=== PATIENT | female | born 1995 | race African-American/Black ===

== ENCOUNTER 2017-06-07 18:36 | Emergency (ER) | payer OTHER ==
[2017-06-07 18:49] VITALS: TEMP 99.4
[2017-06-07] MEDS ORDERED: SODIUM CHLORIDE 0.9% 1,000 ML IV ONE (19:07)
--- NOTE | 2017-06-07 19:15 | ED ---
Female Urogenital HPI - General Chief complaint: Vaginal Bleeding Stated complaint: Vaginal Bleeding, Poss Time Seen by Provider: 06/07/17 18:53 Source: patient Mode of arrival: ambulatory Limitations: no limitations - History of Present Illness Initial comments: Patient presents with bilateral lower pelvic cramping that is mild, similar to a period. She states she took a home test was positive. Last menstrual period was April 23. She states she's been twice before, had similar symptoms during her first , states she was told that it is normal, however it happened later in her around 13 weeks. Along with some mild cramping pain patient states she's had a small amount of intermittent spotting. States there is some pink mucous on the tissue yesterday. She has not had to use a tampon or pad at all. States spotting does seem to occur after intercourse. Patient denies nausea, vomiting, lightheadedness, syncope, changes in bowel movements, urinary symptoms. MD Complaint: pelvic pain Onset/Timin -: days(s) Quality: cramping Consistency: intermittent Last Menstrual Period: 04/23/17 - Related Data Sexually active: Yes Previous Rx's Medication Instructions Recorded Cephalexin [Keflex] 500 mg PO BID #14 capsule 06/07/17 Pnv No.95/Ferrous Fum/Folic AC 1 each PO DAILY #30 tablet 06/07/17 [ Multivitamin Tablet] Allergies Allergy/AdvReac Type Severity Reaction Status Date / Time No Known Allergies Allergy Verified 06/07/17 19:29 Review of Systems ROS Statement: Those systems with pertinent positive or pertinent negative responses have been documented in the HPI. ROS Other: All systems not noted in ROS Statement are negative. Constitutional: Denies: fever, chills, weakness Eyes: Denies: vision change ENT: Denies: ear pain, throat pain, congestion Respiratory: Denies: cough, dyspnea, wheezes Cardiovascular: Denies: chest pain, palpitations Endocrine: Denies: fatigue Gastrointestinal: Reports: abdominal pain. Denies: nausea, vomiting, diarrhea, constipation, melena, hematochezia Genitourinary: Reports: other (Spotting). Denies: urgency, dysuria, frequency, hematuria, discharge Skin: Denies: rash Neurological: Denies: headache Psychiatric: Denies: anxiety, depression Hematological/Lymphatic: Denies: easy bleeding, easy bruising Past Medical History Past Medical History: No Reported History Additional Past Medical History / Comment(s): asthma as child History of Any Multi-Drug Resistant Organisms: None Reported Past Surgical History: Section Additional Past Surgical History / Comment(s): 2011 c/s, 2003 lasik, 2000 adenoids Past Anesthesia/Blood Transfusion Reactions: No Reported Reaction Past Psychological History: Anxiety, Depression Smoking Status: Never smoker Past Alcohol Use History: None Reported Past Drug Use History: None Reported General Exam - General Exam Comments Initial Comments: Patient lying on bed. No acute distress. Does not appear in pain. Conversing normally. Calm, pleasant. Well-groomed well dressed. Well-appearing. Limitations: no limitations General appearance: alert, in no apparent distress Head exam: Present: atraumatic, normocephalic Eye exam: Present: normal appearance ENT exam: Present: mucous membranes moist Neck exam: Present: normal inspection Respiratory exam: Present: normal lung sounds bilaterally. Absent: respiratory distress, wheezes, rales, rhonchi, stridor, chest wall tenderness, decreased breath sounds Cardiovascular Exam: Present: regular rate, normal rhythm GI/Abdominal exam: Present: soft, normal bowel sounds. Absent: distended, tenderness, guarding, rebound, rigid External exam: Present: normal external exam. Absent: erythema, swelling, lesions Speculum exam: Present: normal speculum exam, other (Cervix closed.). Absent: erythema, vaginal discharge, cervical discharge, tissue Neurological exam: Present: alert, oriented X3 Psychiatric exam: Present: normal affect, normal mood Skin exam: Present: warm, dry, intact Course Vital Signs 06/07/17 06/07/17 18:46 20:51 Temperature 99.4 F Pulse Rate 84 66 Respiratory 16 16 Rate Blood Pressure 127/63 111/56 O2 Sat by Pulse 98 100 Oximetry Medical Decision Making - Medical Decision Making She has no significant pain at time of initial evaluation. Did not require pain meds. Ultrasound shows single intrauterine approximately 9 weeks old. Urine likely contaminated, however given we'll give prescription for antibiotics, Keflex. Urine culture sent. Patient to follow up with her OB Dr. Vargas for management. vitamin prescription is given. Patient updated with all results and plan. She understands and agrees. All questions answered. Patient's symptoms likely secondary to normal mild cramping and spotting from normal . - Lab Data Result diagrams: 06/07/17 19:15 06/07/17 19:15 Lab Results 06/07/17 06/07/17 06/07/17 Range/Units 19:15 19:15 19:15 WBC 5.4 (3.8-10.6) k/uL RBC 3.87 (3.80-5.40) m/uL Hgb 11.8 (11.4-16.0) gm/dL Hct 35.1 (34.0-46.0) % MCV 90.7 (80.0-100.0) fL MCH 30.3 (25.0-35.0) pg MCHC 33.5 (31.0-37.0) g/dL RDW 13.9 (11.5-15.5) % Plt Count 246 (150-450) k/uL Neutrophils % 52 % Lymphocytes % 37 % Monocytes % 7 % Eosinophils % 1 % Basophils % 1 % Neutrophils # 2.8 (1.3-7.7) k/uL Lymphocytes # 2.0 (1.0-4.8) k/uL Monocytes # 0.4 (0-1.0) k/uL Eosinophils # 0.1 (0-0.7) k/uL Basophils # 0.0 (0-0.2) k/uL PT (9.0-12.0) sec INR (<1.2) APTT (22.0-30.0) sec Sodium 138 (137-145) mmol/L Potassium 3.8 (3.5-5.1) mmol/L Chloride 108 H (98-107) mmol/L Carbon Dioxide 19 L (22-30) mmol/L Anion Gap 11 mmol/L BUN 5 L (7-17) mg/dL Creatinine 0.60 (0.52-1.04) mg/dL Est GFR (MDRD) Af Amer >60 (>60 ml/min/1.73 sqM) Est GFR (MDRD) Non-Af >60 (>60 ml/min/1.73 sqM) Glucose 127 H (74-99) mg/dL Calcium 9.1 (8.4-10.2) mg/dL HCG, Quant 86606.6 mIU/mL Urine Color Urine Appearance (Clear) Urine pH (5.0-8.0) Ur Specific [place] (1.001-1.035) Urine Protein (Negative) Urine Glucose (UA) (Negative) Urine Ketones (Negative) Urine Blood (Negative) Urine Nitrite (Negative) Urine Bilirubin (Negative) Urine Urobilinogen (<2.0) mg/dL Ur Leukocyte Esterase (Negative) Urine RBC (0-5) /hpf Urine WBC (0-5) /hpf Ur Squamous Epith Cells (0-4) /hpf Amorphous Sediment (None) /hpf Urine Mucus (None) /hpf Blood Type B Positive Blood Type Recheck No 06/07/17 06/07/17 Range/Units 19:15 19:15 WBC (3.8-10.6) k/uL RBC (3.80-5.40) m/uL Hgb (11.4-16.0) gm/dL Hct (34.0-46.0) % MCV (80.0-100.0) fL MCH (25.0-35.0) pg MCHC (31.0-37.0) g/dL RDW (11.5-15.5) % Plt Count (150-450) k/uL Neutrophils % % Lymphocytes % % Monocytes % % Eosinophils % % Basophils % % Neutrophils # (1.3-7.7) k/uL Lymphocytes # (1.0-4.8) k/uL Monocytes # (0-1.0) k/uL Eosinophils # (0-0.7) k/uL Basophils # (0-0.2) k/uL PT 10.8 (9.0-12.0) sec INR 1.1 (<1.2) APTT 23.9 (22.0-30.0) sec Sodium (137-145) mmol/L Potassium (3.5-5.1) mmol/L Chloride (98-107) mmol/L Carbon Dioxide (22-30) mmol/L Anion Gap mmol/L BUN (7-17) mg/dL Creatinine (0.52-1.04) mg/dL Est GFR (MDRD) Af Amer (>60 ml/min/1.73 sqM) Est GFR (MDRD) Non-Af (>60 ml/min/1.73 sqM) Glucose (74-99) mg/dL Calcium (8.4-10.2) mg/dL HCG, Quant mIU/mL Urine Color Yellow Urine Appearance Cloudy H (Clear) Urine pH 6.0 (5.0-8.0) Ur Specific [place] 1.023 (1.001-1.035) Urine Protein 1+ H (Negative) Urine Glucose (UA) Negative (Negative) Urine Ketones Negative (Negative) Urine Blood Large H (Negative) Urine Nitrite Negative (Negative) Urine Bilirubin Negative (Negative) Urine Urobilinogen 2.0 (<2.0) mg/dL Ur Leukocyte Esterase Trace H (Negative) Urine RBC 6 H (0-5) /hpf Urine WBC 11 H (0-5) /hpf Ur Squamous Epith Cells 35 H (0-4) /hpf Amorphous Sediment Occasional H (None) /hpf Urine Mucus Few H (None) /hpf Blood Type Blood Type Recheck Disposition Clinical Impression: , UTI (urinary tract infection) during Disposition: HOME SELF-CARE Condition: Good Instructions: Abdominal Pain in (ED), Urinary Tract Infection in (ED) Prescriptions: Cephalexin [Keflex] 500 mg PO BID #14 capsule Pnv No.95/Ferrous Fum/Folic AC [ Multivitamin Tablet] 1 each PO DAILY # 30 tablet Referrals: None,Stated [Primary Care Provider] - 1-2 days Berenice Vargas DO [Doctor of Osteopathic Medicine] - 1-2 days
[2017-06-07 19:35] LABS: Basophils % (A) 1 %; CHCM 34.4; Eosinophils # (A) 0.1 k/uL (0-0.7); Eosinophils % (A) 1 %; HCT 35.1 % (34.0-46.0); HDW 2.42; HGB 11.8 gm/dL (11.4-16.0); Luc # (Auto) 0.16; Luc % (Auto) 3; Lymphocytes % (A) 37 %; MCH 30.3 pg (25.0-35.0); MCHC 33.5 g/dL (31.0-37.0); MCV 90.7 fL (80.0-100.0); Mean Platelet Volume 8.5; Monocytes # (A) 0.4 k/uL (0-1.0); Monocytes % (A) 7 %; Neutrophils # (A) 2.8 k/uL (1.3-7.7); Neutrophils % (A) 52 %; RBC 3.87 m/uL (3.80-5.40); RDW 13.9 % (11.5-15.5); WBC 5.4 k/uL (3.8-10.6); WBC (Perox) 5.63
[2017-06-07 19:46] LABS: Partial Thromboplastin Time 23.9 sec (22.0-30.0)
[2017-06-07 19:48] LABS: INR 1.1 (<1.2); Prothrombin Time 10.8 sec (9.0-12.0)
[2017-06-07 19:49] LABS: Amorphous Sediment,Urine Occasional /hpf; Appearance,Urine Cloudy (Clear); Bilirubin,Urine Negative (Negative); Glucose,Urine (UA) Negative (Negative); Ketones,Urine Negative (Negative); Leukocyte Esterase,Urine Trace (Negative); Mucus,Urine Few /hpf; Nitrite,Urine Negative (Negative); Particle Count 12909; Protein,Urine 1+ (Negative); RBC,Urine 6 /hpf (0-5); Specific Gravity,Urine 1.023 (1.001-1.035); Squamous Epithelial Cell,Urine 35 /hpf (0-4); UA Billing (MACRO vs. MICRO) MICRO; WBC,Urine 11 /hpf (0-5)
[2017-06-07 19:51] LABS: Anion Gap 11 mmol/L; Blood Urea Nitrogen 5 mg/dL (7-17); Calcium 9.1 mg/dL (8.4-10.2); Carbon Dioxide 19 mmol/L (22-30); Chloride 108 mmol/L (98-107); Glucose 127 mg/dL (74-99); Non-African American GFR(MDRD) >60 (>60 ml/min/1.73 sqM); Potassium 3.8 mmol/L (3.5-5.1); Sodium 138 mmol/L (137-145)
--- NOTE | 2017-06-07 20:27 | US ---
EXAMINATION TYPE: US OB <= 14 wk fetus DATE OF EXAM: 06/07/2017 COMPARISON: Spotting CLINICAL HISTORY: pain. EXAM PERFORMED: Transvaginal (TV) and Transabdominal (TA) EXAM MEASUREMENTS: GESTATIONAL AGE / DATING Physician Established: Not yet established ) Dates by LMP: 05/24/2017 (6 weeks/3 days) EDC: 01/28/2018 Dates by First Scan: No previous this is first scan Dates by Current Scan for: (6 weeks/3 days) EDC: 01/28/2018 MATERNAL ANATOMY Uterus: 9.9 x 5.7 x 6.1 cm Right Ovary: 3.2 x 2.0 x 2.5 cm Left Ovary: 2.4 x 2.0 1.7 cm Post CDS / Adnexa: wnl Presence of free fluid: no Presence of corpus luteal cyst: yes Presence of subchorionic bleed: no GESTATION / SURVEY CRL: 0.72 (9 weeks/4 days) MSD: 1.83 (6 weeks/2 days) Yolk Sac (normal less than 6mm): 0.26 Heart Rate: 174 bpm Rhythm: Normal IUP: Viable IUP Date of LMP: ? Beta HcG (if available): Not available Single live intrauterine gestation is confirmed as gestational sac, yolk sac, pole are identifi ed currently. No free fluid is seen in pelvic cul-de-sac. Both ovaries are present. A 1 cm anechoic lesion within right ovary may reflect corpus luteal cyst. N o suspicious extraovarian lesions are present. IMPRESSION: Single live intrauterine gestation is confirmed, mean crown-rump length is 0.7 cm corresponding to 9 week 4 day old fetus.
[2017-06-07 20:54] VITALS: BP 111/56
[2017-06-07 21:24] VITALS: PULSE 84; RESP 19
== END 2017-06-07 21:25 | disposition home or self-care (01) ==
LOC: EC 18:36
DX: O23.41 Unspecified infection of urinary tract in pregnancy, first trimester (principal); Z3A.09 9 weeks gestation of pregnancy
CPT/HCPCS: 36415; 76801; 80048; 81001; 84702; 85025; 85610; 85730; 86900; 86901; 87086; 96360; 99284

== ENCOUNTER 2017-09-08 20:38 | Emergency (ER) | payer OTHER ==
[2017-09-08 20:46] VITALS: BP 125/57; PULSE 122; RESP 18; TEMP 98
--- NOTE | 2017-09-08 20:59 | ED ---
URI HPI - General Chief Complaint: Upper Respiratory Infection Stated Complaint: Flu Symptoms (20 week preg) Time Seen by Provider: 09/08/17 20:48 Source: patient, RN notes reviewed Mode of arrival: ambulatory Limitations: no limitations - History of Present Illness Initial Comments: This is a 22-year-old female presents emergency Department chief complaint of sinus congestion, sore throat, cough and body aches. 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 Patient states that she's had cold flashes no reported fever. She has tried some cough drops but has not taken her some Tylenol Motrin. She digit some tea earlier that had some caffeine. Patient states she has no chest pain or palpitations. She has no current shortness of breath or chest pain. Patient denies any nausea vomiting diarrhea constipation. Patient is 19 weeks and 5 days. Patient has no compilations of her . - Related Data Previous Rx's Medication Instructions Recorded Pnv No.95/Ferrous Fum/Folic AC 1 each PO DAILY #30 tablet 06/07/17 [ Multivitamin Tablet] Allergies Allergy/AdvReac Type Severity Reaction Status Date / Time No Known Allergies Allergy Verified 09/08/17 21:15 Review of Systems ROS Statement: Those systems with pertinent positive or pertinent negative responses have been documented in the HPI. ROS Other: All systems not noted in ROS Statement are negative. Past Medical History Past Medical History: No Reported History Additional Past Medical History / Comment(s): asthma as child History of Any Multi-Drug Resistant Organisms: None Reported Past Surgical History: Section Additional Past Surgical History / Comment(s): 2012 c/s, 2003 lasik, 2000 adenoids Past Anesthesia/Blood Transfusion Reactions: No Reported Reaction Past Psychological History: Anxiety, Depression Smoking Status: Never smoker Past Alcohol Use History: None Reported Past Drug Use History: None Reported General Exam Limitations: no limitations General appearance: alert, in no apparent distress Head exam: Present: atraumatic, normocephalic, normal inspection Eye exam: Present: normal appearance, PERRL, EOMI. Absent: scleral icterus, conjunctival injection, periorbital swelling ENT exam: Present: mucous membranes moist, TM's normal bilaterally, normal external ear exam. Absent: normal exam, normal oropharynx (Postnasal drainage) Neck exam: Present: normal inspection, full ROM. Absent: tenderness, meningismus, lymphadenopathy Respiratory exam: Present: normal lung sounds bilaterally. Absent: respiratory distress, wheezes, rales, rhonchi, stridor Cardiovascular Exam: Present: normal rhythm, tachycardia (Tachycardia at 122 on triage, in room recheck at 106), normal heart sounds. Absent: systolic murmur, diastolic murmur, rubs, gallop, clicks Neurological exam: Present: alert, oriented X3, CN II-XII intact Skin exam: Present: warm, dry, intact, normal color. Absent: rash Course Vital Signs 09/08/17 20:45 Temperature 98 F Pulse Rate 122 H Respiratory 18 Rate Blood Pressure 125/57 O2 Sat by Pulse 97 Oximetry Medical Decision Making - Medical Decision Making 22-year-old female presented emergency department with chief complaint cough congestion collections for 1 week. Patient is influenza A positive. Chest x- ray shows no evidence of pneumonia. Patient is advised to take acetaminophen for aches and pains and fever. She may take [id number] medications approved by her LEGAL OPERATIONS MANAGER. - Lab Data Lab Results 09/08/17 Range/Units 21:07 Influenza Type A RNA Detected H (Not Detectd) Influenza Type B (PCR) Not Detected (Not Detectd) Disposition Clinical Impression: Influenza Disposition: HOME SELF-CARE Condition: Stable Instructions: Influenza (ED) Additional Instructions: Please return to the Emergency Department if symptoms worsen or any other concerns. Referrals: None,Stated [Primary Care Provider] - 1-2 days Time of Disposition: 21:32
--- NOTE | 2017-09-08 21:10 | XR ---
EXAMINATION TYPE: XR chest 2V DATE OF EXAM: 09/08/2017 COMPARISON: NONE HISTORY: Cough TECHNIQUE: Frontal and lateral views of the chest are obtained. FINDINGS: Heart and mediastinum are normal. Lungs are clear of consolidation. There is a focal area of subsegmental atelectasis in the left lower lobe. The other lung julian are clear. Bony thorax appe ars normal. IMPRESSION: Minimal subsegmental atelectasis in the left lower lobe.
== END 2017-09-08 21:38 | disposition home or self-care (01) ==
LOC: EC 20:38
DX: O99.512 Diseases of the respiratory system complicating pregnancy, second trimester (principal); J10.1 Influenza due to other identified influenza virus with other respiratory manifestations; Z3A.20 20 weeks gestation of pregnancy
CPT/HCPCS: 71046; 87502; 99283

== ENCOUNTER → 2017-10-14 | Outpatient (CLI) | payer OTHER ==
[2017-10-14 10:00] LABS: HCT 33.4 % (34.0-46.0); HGB 10.7 gm/dL (11.4-16.0); MCH 30.3 pg (25.0-35.0); MCHC 32.1 g/dL (31.0-37.0); MCV 94.4 fL (80.0-100.0); Mean Platelet Volume 8.6; Platelet Count 205 k/uL (150-450); RBC 3.54 m/uL (3.80-5.40); RDW 13.4 % (11.5-15.5); WBC 7.8 k/uL (3.8-10.6)
== END | disposition home or self-care (01) ==
LOC: LABWHC1 08:29
PROVIDERS: ATTEND Obstetrics & Gynecology
DX: Z34.82 Encounter for supervision of other normal pregnancy, second trimester (principal)
CPT/HCPCS: 36415; 82950; 85027

== ENCOUNTER 2017-10-19 16:16 | Emergency (ER) | payer OTHER ==
--- NOTE | 2017-10-19 16:39 | ED ---
General Adult HPI - General Chief complaint: Dizziness Stated complaint: Dizziness Time Seen by Provider: 10/19/17 16:36 Source: patient Mode of arrival: ambulatory Limitations: no limitations - History of Present Illness Initial comments: Dk is a 22 yo female currently 26wk who presents to the ED today for evaluation of fatigue, nausea and near syncope. 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 Patient reports that after eating she started and she felt very lightheaded, her hands became clammy and she felt like she could pass out. She denies any chest pain or palpitations at that time. She sat back down and was advised by the nursing staff that she needs to have her blood glucose checked and be evaluated in the emergency department. Patient does report she's been feeling fatigued for approximately 3 days. She states she attributed this to lack of sleep she does have a 3-year-old and a 5- year-old home. She states that she figured she just needed to make sure to eat more and sleep more and she would feel better. However, symptoms persisted after eating today so she came to the ER for evaluation. Patient follows with Dr. Vargas for OB, she has had an uncomplicated thus far. - Related Data Home Medications Medication Instructions Recorded Confirmed Pnv No.95/Ferrous Fum/Folic AC 1 tab PO HS 10/19/17 10/19/17 [ Multivitamin Tablet] Allergies Allergy/AdvReac Type Severity Reaction Status Date / Time No Known Allergies Allergy Verified 10/19/17 16:32 Review of Systems ROS Statement: Those systems with pertinent positive or pertinent negative responses have been documented in the HPI. ROS Other: All systems not noted in ROS Statement are negative. Constitutional: Denies: fever, chills ENT: Denies: throat pain Respiratory: Denies: cough, dyspnea, wheezes Cardiovascular: Reports: palpitations. Denies: chest pain, syncope Endocrine: Reports: fatigue Gastrointestinal: Reports: nausea Genitourinary: Denies: urgency, dysuria Musculoskeletal: Reports: back pain (chronic) Skin: Denies: rash, lesions, change in color Neurological: Denies: paresthesias, confusion, abnormal gait, vertigo Psychiatric: Denies: anxiety Hematological/Lymphatic: Denies: easy bleeding, easy bruising Past Medical History Past Medical History: No Reported History Additional Past Medical History / Comment(s): asthma as child History of Any Multi-Drug Resistant Organisms: None Reported Past Surgical History: Adenoidectomy, Section Additional Past Surgical History / Comment(s): 2012 c/s, 2003 lasik, Past Anesthesia/Blood Transfusion Reactions: No Reported Reaction Past Psychological History: Anxiety, Depression Smoking Status: Never smoker Past Alcohol Use History: None Reported Past Drug Use History: None Reported General Exam Limitations: no limitations General appearance: alert, in no apparent distress Head exam: Present: atraumatic, normocephalic Eye exam: Present: normal appearance, PERRL ENT exam: Present: normal exam Neck exam: Present: normal inspection Respiratory exam: Present: normal lung sounds bilaterally. Absent: respiratory distress, wheezes Cardiovascular Exam: Present: regular rate, normal rhythm GI/Abdominal exam: Present: soft, normal bowel sounds, other (uterus palpable above umbilicus ) Rectal exam: Present: deferred Extremities exam: Present: normal inspection, full ROM, normal capillary refill. Absent: tenderness, pedal edema, joint swelling Back exam: Present: normal inspection Neurological exam: Present: alert, oriented X3. Absent: altered Psychiatric exam: Present: normal affect, normal mood Skin exam: Present: warm, dry, intact, normal color Course Vital Signs 10/19/17 10/19/17 10/19/17 16:25 18:45 19:28 Temperature 97.6 F 97 F L Pulse Rate 100 97 Respiratory 20 18 Rate Blood Pressure 145/79 118/55 Blood Pressure 139/66 [Right Arm Sitting] Blood Pressure 146/71 [Right Arm Standing] Blood Pressure 128/66 [Right Arm Supine] O2 Sat by Pulse 98 98 Oximetry - Reevaluation(s) Reevaluation #1: Patient was reevaluated, reports feeling better after IV fluids 10/19/17 18:31 Medical Decision Making - Medical Decision Making Patient seen and evaluated Vital signs reviewed - heart rate is 100, normal blood pressure OB nurse at bedside obtained Dopplers. heart rate in the 150s to 160s. Heart rate was monitored for 1 minute. Mother reports that the baby has had good motion and she has no concerns. Labs, EKG, IVF ordered Will assess orthostatic vital signs after IVF Lab results were reviewed, patient is anemic which is consistent with dilutional anemia of Patient was reevaluated, reports feeling better after IV fluids, results were discussed with the patient Discussed with the patient the possibility of more serious diagnosis including pulmonary embolism, I offered the patient bilateral venous Dopplers or CT pulmonary embolism study. At this time the patient states that she believes her fatigue and shortness of breath is normal for . She does not feel that it is out of proportion compared to her previous pregnancies. She does feel that her symptoms have been relieved with IV fluids. At this time the patient has declined further workup for pulmonary embolism. The patient does have follow-up established with her OB on Tuesday. Patient was advised to return to the emergency department should she develop any chest pain, shortness breath, lightheadedness or any new or concerning symptoms. Patient expressed understanding of this plan. Offered to write the patient for day off work tomorrow. 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 I advised the patient that I feel that she will benefit from this rest. Patient in agreement with this. Orthostatic vital signs were negative. Patient reports feeling much better after 1 L IV fluid. At this time the patient is comfortable with plan for discharge home. Patient does plan to sleep and catch up on her rest tomorrow and return to work on Tuesday. Again patient understands the need to return to the emergency department immediately should she develop any worsening or concerning symptoms. All questions pertaining to care were answered to the best of my ability the patient was discharged home with a plan to follow up with her project buyer on Tuesday. - Lab Data Result diagrams: 10/19/17 17:15 10/19/17 17:15 Lab Results 10/19/17 10/19/17 10/19/17 Range/Units 17:15 17:15 17:15 WBC 6.8 (3.8-10.6) k/uL RBC 3.45 L (3.80-5.40) m/uL Hgb 10.3 L (11.4-16.0) gm/dL Hct 32.1 L (34.0-46.0) % MCV 93.0 (80.0-100.0) fL MCH 29.9 (25.0-35.0) pg MCHC 32.1 (31.0-37.0) g/dL RDW 13.3 (11.5-15.5) % Plt Count 189 (150-450) k/uL Neutrophils % 69 % Lymphocytes % 20 % Monocytes % 7 % Eosinophils % 2 % Basophils % 0 % Neutrophils # 4.7 (1.3-7.7) k/uL Lymphocytes # 1.4 (1.0-4.8) k/uL Monocytes # 0.5 (0-1.0) k/uL Eosinophils # 0.1 (0-0.7) k/uL Basophils # 0.0 (0-0.2) k/uL Sodium 138 (137-145) mmol/L Potassium 3.5 (3.5-5.1) mmol/L Chloride 106 (98-107) mmol/L Carbon Dioxide 22 (22-30) mmol/L Anion Gap 10 mmol/L BUN 4 L (7-17) mg/dL Creatinine 0.50 L (0.52-1.04) mg/dL Est GFR (MDRD) Af Amer >60 (>60 ml/min/1.73 sqM) Est GFR (MDRD) Non-Af >60 (>60 ml/min/1.73 sqM) Glucose 113 H (74-99) mg/dL Calcium 9.0 (8.4-10.2) mg/dL Total Bilirubin 0.2 (0.2-1.3) mg/dL AST 18 (14-36) U/L ALT 13 (9-52) U/L Alkaline Phosphatase 70 (38-126) U/L Troponin I <0.012 (0.000-0.034) ng/mL Total Protein 6.5 (6.3-8.2) g/dL Albumin 3.2 L (3.5-5.0) g/dL Urine Color Urine Appearance (Clear) Urine pH (5.0-8.0) Ur Specific [place] (1.001-1.035) Urine Protein (Negative) Urine Glucose (UA) (Negative) Urine Ketones (Negative) Urine Blood (Negative) Urine Nitrite (Negative) Urine Bilirubin (Negative) Urine Urobilinogen (<2.0) mg/dL Ur Leukocyte Esterase (Negative) Urine RBC (0-5) /hpf Urine WBC (0-5) /hpf Ur Squamous Epith Cells (0-4) /hpf Amorphous Sediment (None) /hpf Urine Mucus (None) /hpf 10/19/17 Range/Units 17:15 WBC (3.8-10.6) k/uL RBC (3.80-5.40) m/uL Hgb (11.4-16.0) gm/dL Hct (34.0-46.0) % MCV (80.0-100.0) fL MCH (25.0-35.0) pg MCHC (31.0-37.0) g/dL RDW (11.5-15.5) % Plt Count (150-450) k/uL Neutrophils % % Lymphocytes % % Monocytes % % Eosinophils % % Basophils % % Neutrophils # (1.3-7.7) k/uL Lymphocytes # (1.0-4.8) k/uL Monocytes # (0-1.0) k/uL Eosinophils # (0-0.7) k/uL Basophils # (0-0.2) k/uL Sodium (137-145) mmol/L Potassium (3.5-5.1) mmol/L Chloride (98-107) mmol/L Carbon Dioxide (22-30) mmol/L Anion Gap mmol/L BUN (7-17) mg/dL Creatinine (0.52-1.04) mg/dL Est GFR (MDRD) Af Amer (>60 ml/min/1.73 sqM) Est GFR (MDRD) Non-Af (>60 ml/min/1.73 sqM) Glucose (74-99) mg/dL Calcium (8.4-10.2) mg/dL Total Bilirubin (0.2-1.3) mg/dL AST (14-36) U/L ALT (9-52) U/L Alkaline Phosphatase (38-126) U/L Troponin I (0.000-0.034) ng/mL Total Protein (6.3-8.2) g/dL Albumin (3.5-5.0) g/dL Urine Color Yellow Urine Appearance Cloudy H (Clear) Urine pH 6.5 (5.0-8.0) Ur Specific [place] 1.015 (1.001-1.035) Urine Protein Trace H (Negative) Urine Glucose (UA) 1+ H (Negative) Urine Ketones Negative (Negative) Urine Blood Negative (Negative) Urine Nitrite Negative (Negative) Urine Bilirubin Negative (Negative) Urine Urobilinogen 2.0 (<2.0) mg/dL Ur Leukocyte Esterase Trace H (Negative) Urine RBC 1 (0-5) /hpf Urine WBC 19 H (0-5) /hpf Ur Squamous Epith Cells 29 H (0-4) /hpf Amorphous Sediment Occasional H (None) /hpf Urine Mucus Few H (None) /hpf Disposition Clinical Impression: Dehydration Disposition: HOME SELF-CARE Condition: Good Instructions: Dehydration (ED), Dizziness (ED) Referrals: None,Stated [Primary Care Provider] - 1-2 days Berenice Vargas DO [Doctor of Osteopathic Medicine] - 1-2 days Time of Disposition: 19:06
[2017-10-19] MEDS ORDERED: SODIUM CHLORIDE 0.9% 1,000 ML IV STA (16:48)
[2017-10-19 17:33] LABS: Amorphous Sediment,Urine Occasional /hpf; Appearance,Urine Cloudy (Clear); Basophils % (A) 0 %; Bilirubin,Urine Negative (Negative); Blood,Urine Negative (Negative); Color,Urine Yellow; Eosinophils # (A) 0.1 k/uL (0-0.7); Eosinophils % (A) 2 %; Glucose,Urine (UA) 1+ (Negative); HCT 32.1 % (34.0-46.0); HGB 10.3 gm/dL (11.4-16.0); Ketones,Urine Negative (Negative); Leukocyte Esterase,Urine Trace (Negative); Lymphocytes # (A) 1.4 k/uL (1.0-4.8); Lymphocytes % (A) 20 %; MCH 29.9 pg (25.0-35.0); MCHC 32.1 g/dL (31.0-37.0); Mean Platelet Volume 9.1; Monocytes # (A) 0.5 k/uL (0-1.0); Monocytes % (A) 7 %; Mucus,Urine Few /hpf; Neutrophils # (A) 4.7 k/uL (1.3-7.7); Neutrophils % (A) 69 %; Nitrite,Urine Negative (Negative); PH, Urine 6.5 (5.0-8.0); Platelet Count 189 k/uL (150-450); Protein,Urine Trace (Negative); RBC 3.45 m/uL (3.80-5.40); RBC,Urine 1 /hpf (0-5); RDW 13.3 % (11.5-15.5); Specific Gravity,Urine 1.015 (1.001-1.035); Squamous Epithelial Cell,Urine 29 /hpf (0-4); WBC 6.8 k/uL (3.8-10.6); WBC,Urine 19 /hpf (0-5)
[2017-10-19 17:37] LABS: ALT 13 U/L (9-52); AST 18 U/L (14-36); Albumin 3.2 g/dL (3.5-5.0); Alkaline Phosphatase 70 U/L (38-126); Anion Gap 10 mmol/L; Blood Urea Nitrogen 4 mg/dL (7-17); Carbon Dioxide 22 mmol/L (22-30); Chloride 106 mmol/L (98-107); Glucose 113 mg/dL (74-99); Potassium 3.5 mmol/L (3.5-5.1); Sodium 138 mmol/L (137-145); Total Bilirubin 0.2 mg/dL (0.2-1.3); Total Protein 6.5 g/dL (6.3-8.2)
[2017-10-19 19:29] VITALS: BP 118/55; PULSE 97; RESP 18; TEMP 97
== END 2017-10-19 19:29 | disposition home or self-care (01) ==
LOC: EC 16:16
DX: O99.282 Endocrine, nutritional and metabolic diseases complicating pregnancy, second trimester (principal); E86.0 Dehydration; O99.89 Other specified diseases and conditions complicating pregnancy, childbirth and the puerperium; R55 Syncope and collapse; R11.0 Nausea; R53.83 Other fatigue; R42 Dizziness and giddiness; Z3A.26 26 weeks gestation of pregnancy
CPT/HCPCS: 36415; 80053; 81001; 84484; 85025; 93005; 96360; 96361; 99284

== ENCOUNTER 2017-10-23 13:08 | Outpatient (CLI) | payer OTHER ==
[2017-10-23 14:25] LABS: Appearance,Urine Turbid (Clear); Bacteria,Urine Rare /hpf; Bilirubin,Urine Negative (Negative); Blood,Urine Negative (Negative); Budding Yeast,Urine Many /hpf; Color,Urine Yellow; Glucose,Urine (UA) Negative (Negative); Ketones,Urine Negative (Negative); Leukocyte Esterase,Urine Negative (Negative); Nitrite,Urine Negative (Negative); Protein,Urine Trace (Negative); Specific Gravity,Urine 1.012 (1.001-1.035); Squamous Epithelial Cell,Urine 2 /hpf (0-4); Urobilinogen,Urine <2.0 mg/dL (<2.0); WBC,Urine 4 /hpf (0-5)
[2017-10-23 15:22] VITALS: BP 134/73; PULSE 111; RESP 20; TEMP 98.3
--- NOTE | 2017-11-20 07:22 | P.MSEPDOC ---
Presenting Problems - Arrival Data Date of Arrival on Unit: 10/23/17 Time of Arrival on Unit: 13:15 Mode of Transport: Ambulatory - Complaint OB-Reason for Admission/Chief Complaint: Observation/Evaluation, Other Medical History - Information : 3 Para: 2 Term: 2 : 0 Abortions: Spontaneous or Elective: 0 Number of Living Children: 2 - Gestational Age Gestational Age by EDGARD (wks/days): 26 Weeks and 1 Days Review of Systems - Review of Systems Constitutional: No problems Breast: No problems ENT: No problems Cardiovascular: No problems Respiratory: No problems Gastrointestinal: No problems Genitourinary: No problems Musculoskeletal: No problems Neurological: No problems Skin: No problems Vital Signs - Temperature Temperature: 98.3 F Temperature Source: Oral - Pulse Right Brachial Pulse Rate: 111 Pulse Assessment Method: Auscultation - Respirations Respiratory Rate: 20 Oxygen Delivery Method: Room Air O2 Sat by Pulse Oximetry: 100 - Blood Pressure Right Arm Blood Pressure: 134/73 Blood Pressure Mean: 93 Blood Pressure Source: Automatic Cuff Medical Screen Scoring (Pre) - Cervical Exam Dilation: 0 cm = 0 Membranes: Intact - Uterine Contractions Frequency: N/A Duration: N/A Intensity: N/A - Maternal Vital Signs Maternal Temperature: N/A Maternal Blood Pressure: N/A Signs of Preeclampsia: N/A Maternal Respirations: N/A - Pain Assessment Pain Scale Used: Numeric (1 - 10) Pain Intensity: 2 Pain Management Goal: 1 Pain Description: Pressure Pain Radiation Location: n/a Pain Frequency: Occasional Pain Duration: 30 Pain Duration Units: Minutes Pain Behavior: None Exhibited Pain Aggravating Factors: Walking Non-Pharmacological Interventions: Position/Reposition - Maternal Trauma Maternal Trauma: N/A - Assessment Baseline FHR: 130 Heart Rate - NICHD Category: Category I (Normal) = 0 NST: Reactive Position: N/A Station: N/A - Total Score Total Score (Pre): 0 - Level of Risk Level of Risk: Low (0-5) Physician Notification (Pre) - Physician Notified Physician Notified Date: 10/23/17 Physician Notified Time: 14:00 Spoke With: DR APPLE New Order Received: Yes - Notification Comment Comment: 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 U/A SENT AND FIRONECTIN SENT AND NEGATIVE Medical Screen Scoring (Post) - Uterine Contractions Frequency: N/A - Maternal Vital Signs Maternal Temperature: N/A Signs of Preeclampsia: N/A - Total Score Total Score (Post): 0 Disposition - Disposition OB Disposition: Discharge to home Discharge Date: 10/23/17 Discharge Time: 15:10 I agree with the RN Medical Screening Exam: Yes Risk & Benefit of care provided described in d/c instruction: Yes Diagnosis: FALSE LABOR BEFORE 37 COMPLETED WEEKS OF GEST, SECOND TRI
== END 2017-10-23 15:10 | disposition home or self-care (01) ==
LOC: FBPOP 13:08
PROVIDERS: ATTEND Obstetrics & Gynecology
DX: O47.02 False labor before 37 completed weeks of gestation, second trimester (principal); Z3A.26 26 weeks gestation of pregnancy
CPT/HCPCS: 82731; 81001; G0463; 99213

== ENCOUNTER → 2017-11-04 | Outpatient (CLI) | payer OTHER ==
[2017-11-04 12:22] LABS: Glucose 3 Hour, Gest 166 mg/dL
== END | disposition home or self-care (01) ==
LOC: LABWHC1 07:53
PROVIDERS: ATTEND Obstetrics & Gynecology
DX: O99.810 Abnormal glucose complicating pregnancy (principal); Z3A.00 Weeks of gestation of pregnancy not specified
CPT/HCPCS: 36415; 82951; 82952

== ENCOUNTER 2017-11-24 08:14 | Outpatient (CLI) | payer OTHER ==
[2017-11-24 09:21] LABS: Glucose,Whole Blood 95 mg/dL (75-99)
[2017-11-24 09:25] VITALS: BP 136/67; PULSE 108; RESP 16; TEMP 98.1
--- NOTE | 2017-12-14 19:08 | P.MSEPDOC ---
Presenting Problems - Arrival Data Date of Arrival on Unit: 11/24/17 Time of Arrival on Unit: 08:14 Mode of Transport: Ambulatory - Complaint OB-Reason for Admission/Chief Complaint: Possible Onset of Labor, Acute Nausea/ Vomiting Comment: pt states N/V x1 at 0300 today states she thinks she "might be cornelius", but unable to tell Medical History - Information : 3 Para: 2 Term: 2 : 0 Abortions: Spontaneous or Elective: 0 Number of Living Children: 2 - Gestational Age Gestational Age by EDGARD (wks/days): 30 Weeks and 5 Days - History Complications: GDM, Prior Review of Systems - Review of Systems Constitutional: No problems Breast: No problems ENT: No problems Cardiovascular: No problems Respiratory: No problems Gastrointestinal: No problems Genitourinary: No problems Musculoskeletal: No problems Neurological: No problems Skin: No problems Vital Signs - Temperature Temperature: 98.1 F Temperature Source: Oral - Pulse Right Brachial Pulse Rate: 108 Pulse Assessment Method: Automatic Cuff - Respirations Respiratory Rate: 16 Oxygen Delivery Method: Room Air O2 Sat by Pulse Oximetry: 97 - Blood Pressure Right Arm Blood Pressure: 136/67 Blood Pressure Mean: 90 Blood Pressure Source: Automatic Cuff Medical Screen Scoring (Pre) - Cervical Exam Dilation: 0 cm = 0 Membranes: Intact - Uterine Contractions Frequency: > 5 minutes apart = 1 Duration: N/A Intensity: N/A - Maternal Vital Signs Maternal Temperature: N/A Maternal Blood Pressure: N/A Signs of Preeclampsia: N/A Maternal Respirations: N/A - Pain Assessment Pain Location and Character: Back, Abdomen Pain Scale Used: Numeric (1 - 10) Pain Intensity: 4 Pain Management Goal: 2 Pain Description: Aching, Cramping Pain Duration Units: Days Pain Behavior: Vocalization Pain Aggravating Factors: Activity, Standing, Walking Non-Pharmacological Interventions: Position/Reposition - Maternal Trauma Maternal Trauma: N/A - Assessment Baseline FHR: 135 Heart Rate - NICHD Category: Category I (Normal) = 0 NST: Reactive Position: N/A Station: N/A - Total Score Total Score (Pre): 1 - Level of Risk Level of Risk: Low (0-5) Physician Notification (Pre) - Physician Notified Physician Notified Date: 11/24/17 Physician Notified Time: 08:56 Physician/Practitioner Notifed:: Dr Vargas Spoke With: Dr Vargas New Order Received: Yes - Notification Comment Comment: check patients blood sugar if WNL pt may be discharged home Medical Screen Scoring (Post) - Cervical Exam Dilation: 0 cm = 0 Membranes: Intact - Uterine Contractions Frequency: > 5 minutes apart = 1 Duration: N/A Intensity: N/A - Maternal Vital Signs Maternal Temperature: N/A Maternal Blood Pressure: N/A Signs of Preeclampsia: N/A Maternal Respirations: N/A - Pain Assessment Pain Location and Character: Back, Abdomen Pain Scale Used: Numeric (1 - 10) Pain Intensity: 4 Pain Management Goal: 2 Pain Frequency: Intermittent Pain Duration Units: Hours Pain Behavior: Vocalization Pain Aggravating Factors: Activity, Standing, Walking Non-Pharmacological Interventions: Position/Reposition, Reduce Environmental Stimuli - Maternal Trauma Maternal Trauma: N/A - Assessment Heart Rate: 135 Heart Rate - NICHD Category: Category I (Normal) = 0 NST: Reactive Position: N/A Station: N/A - Total Score Total Score (Post): 1 - Post Treatment Level of Risk Post Treatment Level of Risk: Low (0-5) Physician Notification (Post) - Physician Notified Physician Notified Date: 11/24/17 Physician Notified Time: 08:56 Physician/Practitioner Notified:: Dr Vargas Spoke With: Dr Vargas New Order Received: Yes - Notification Comment Comment: check patients blood sugar before discharging home Disposition - Disposition OB Disposition: Discharge to home Discharge Date: 11/24/17 Discharge Time: 09:13 I agree with the RN Medical Screening Exam: Yes Risk & Benefit of care provided described in d/c instruction: Yes Diagnosis: LOW BACK PAIN
== END 2017-11-24 09:13 | disposition home or self-care (01) ==
LOC: FBPOP 08:14
PROVIDERS: ATTEND Obstetrics & Gynecology
DX: O99.89 Other specified diseases and conditions complicating pregnancy, childbirth and the puerperium (principal); M54.5 Low back pain; Z3A.30 30 weeks gestation of pregnancy
CPT/HCPCS: 59025; G0463; 99213

== ENCOUNTER 2017-12-06 04:35 | Outpatient (CLI) | payer OTHER ==
[2017-12-06 05:09] VITALS: BP 129/64; PULSE 123; RESP 16; TEMP 97.5
--- NOTE | 2017-12-06 06:51 | P.MSEPDOC ---
Presenting Problems - Arrival Data Date of Arrival on Unit: 12/06/17 Time of Arrival on Unit: 04:35 Mode of Transport: Wheelchair - Complaint OB-Reason for Admission/Chief Complaint: Possible Onset of Labor, Decreased Movement Comment: contractions 10 minutes apart all day yesterday and this evening/ morning. decreased movement throughout night. Medical History - Information : 3 Para: 2 Term: 2 : 0 Abortions: Spontaneous or Elective: 0 Number of Living Children: 2 - Gestational Age Gestational Age by EDGARD (wks/days): 32 Weeks and 3 Days - History Complications: GDM, Prior Review of Systems - Review of Systems Constitutional: No problems Breast: No problems ENT: No problems Cardiovascular: No problems Respiratory: No problems Gastrointestinal: No problems Genitourinary: No problems Musculoskeletal: No problems Neurological: No problems Skin: No problems Vital Signs - Temperature Temperature: 97.5 F Temperature Source: Temporal Artery Scan - Pulse Right Sitting Brachial Pulse Rate: 123 Pulse Assessment Method: Automatic Cuff - Respirations Respiratory Rate: 16 Oxygen Delivery Method: Room Air O2 Sat by Pulse Oximetry: 98 - Blood Pressure Right Arm Sitting Blood Pressure: 129/64 Blood Pressure Mean: 85 Blood Pressure Source: Automatic Cuff Medical Screen Scoring (Pre) - Cervical Exam Dilation: 1-3 cm = 1 Membranes: Intact - Uterine Contractions Frequency: > 5 minutes apart = 1 Duration: > 40 seconds = 2 Intensity: N/A - Maternal Vital Signs Maternal Temperature: N/A Maternal Blood Pressure: N/A Signs of Preeclampsia: N/A Maternal Respirations: N/A - Pain Assessment Pain Location and Character: Medial, Abdomen Pain Scale Used: Numeric (1 - 10) Pain Intensity: 7 Pain Management Goal: 3 Pain Description: Cramping Pain Radiation Location: lower back Pain Frequency: Intermittent Pain Duration: 16 Pain Duration Units: Hours Pain Behavior: Vocalization Pain Aggravating Factors: Activity - Assessment Baseline FHR: 140 Heart Rate - NICHD Category: Category I (Normal) = 0 NST: Reactive Position: N/A Station: N/A - Total Score Total Score (Pre): 4 - Level of Risk Level of Risk: Low (0-5) Physician Notification (Post) - Physician Notified Physician Notified Date: 12/06/17 Physician Notified Time: 05:24 Physician/Practitioner Notified:: baljit Spoke With: smiley New Order Received: Yes - Notification Comment Comment: send FFN, if negative d/c pt home. Disposition - Disposition OB Disposition: Discharge to home, Written follow up instructions reviewed Discharge Date: 12/06/17 Discharge Time: 06:15 I agree with the RN Medical Screening Exam: Yes Risk & Benefit of care provided described in d/c instruction: Yes Diagnosis: FALSE LABOR BEFORE 37 COMPLETED WEEKS OF GEST, THIRD TRI
== END 2017-12-06 06:15 | disposition home or self-care (01) ==
LOC: FBPOP 04:35
PROVIDERS: ATTEND Obstetrics & Gynecology
DX: O47.03 False labor before 37 completed weeks of gestation, third trimester (principal); Z3A.32 32 weeks gestation of pregnancy
CPT/HCPCS: 59025; 82731; G0463; 99213

== ENCOUNTER 2017-12-12 14:04 | Outpatient (CLI) | payer OTHER ==
[2017-12-12 14:37] VITALS: BP 136/65; PULSE 111; RESP 20; TEMP 97.7
--- NOTE | 2017-12-14 19:01 | P.MSEPDOC ---
Presenting Problems - Arrival Data Date of Arrival on Unit: 12/12/17 Time of Arrival on Unit: 14:01 Mode of Transport: Ambulatory - Complaint OB-Reason for Admission/Chief Complaint: Possible Onset of Labor Comment: Mucous plug lost and pelvic pressure Medical History - Information : 3 Para: 2 Term: 2 : 0 Abortions: Spontaneous or Elective: 0 Number of Living Children: 2 - Gestational Age Gestational Age by EDGARD (wks/days): 33 Weeks and 2 Days - History Complications: GDM Comment: Diet controlled Review of Systems - Review of Systems Constitutional: No problems Breast: No problems ENT: No problems Cardiovascular: No problems Respiratory: No problems Gastrointestinal: No problems Genitourinary: No problems Musculoskeletal: No problems Neurological: No problems Skin: No problems Vital Signs - Temperature Temperature: 97.7 F Temperature Source: Temporal Artery Scan - Pulse Right Supine Brachial Pulse Rate: 111 Pulse Assessment Method: Automatic Cuff - Respirations Respiratory Rate: 20 Oxygen Delivery Method: Room Air O2 Sat by Pulse Oximetry: 98 - Blood Pressure Right Arm Supine Blood Pressure: 136/65 Blood Pressure Mean: 88 Blood Pressure Source: Automatic Cuff Medical Screen Scoring (Pre) - Cervical Exam Dilation: 1-3 cm = 1 Membranes: Intact - Uterine Contractions Frequency: > 5 minutes apart = 1 Duration: > 40 seconds = 2 - Maternal Vital Signs Maternal Temperature: N/A Maternal Blood Pressure: N/A Signs of Preeclampsia: N/A - Pain Assessment Pain Scale Used: Numeric (1 - 10) Pain Intensity: 0 Pain Behavior: None Exhibited - Maternal Trauma Maternal Trauma: N/A - Assessment Baseline FHR: 125 Heart Rate - NICHD Category: Category I (Normal) = 0 NST: Reactive Position: N/A Station: N/A - Total Score Total Score (Pre): 4 - Level of Risk Level of Risk: Low (0-5) Physician Notification (Pre) - Physician Notified Physician Notified Date: 12/12/17 Physician Notified Time: 16:10 Physician/Practitioner Notifed:: Dr Vargas Spoke With: Dr Vargas New Order Received: Yes (Discharge to home) - Notification Comment Comment: Discharge to home SVE same after re-check with negative FFN 6 days ago Disposition - Disposition OB Disposition: Discharge to home Transferred to:: Home Discharge Date: 12/12/17 Discharge Time: 16:30 I agree with the RN Medical Screening Exam: Yes Physician's MSE Comment: no cervical change after 2 hours and neg FFN less than 1 week ago. Risk & Benefit of care provided described in d/c instruction: Yes Diagnosis: FALSE LABOR BEFORE 37 COMPLETED WEEKS OF GEST, THIRD TRI
== END 2017-12-12 16:30 | disposition home or self-care (01) ==
LOC: FBPOP 14:04
PROVIDERS: ATTEND Obstetrics & Gynecology
DX: O47.03 False labor before 37 completed weeks of gestation, third trimester (principal); Z3A.33 33 weeks gestation of pregnancy
CPT/HCPCS: 59025; G0463; 99213

== ENCOUNTER 2017-12-30 12:49 | Outpatient (CLI) | payer OTHER ==
[2017-12-30] MEDS ORDERED: SODIUM CHLORIDE 0.9% 1,000 ML IV ONE (13:24)
[2017-12-30 13:41] LABS: Glucose,Whole Blood 92 mg/dL (75-99)
[2017-12-30 14:04] VITALS: BP 134/60; PULSE 127; RESP 15; TEMP 98.3
--- NOTE | 2018-01-03 08:55 | P.MSEPDOC ---
Presenting Problems - Arrival Data Date of Arrival on Unit: 12/30/17 Time of Arrival on Unit: 12:57 Mode of Transport: Ambulatory - Complaint OB-Reason for Admission/Chief Complaint: Pain Medical History - Information : 3 Para: 2 Term: 2 : 0 Abortions: Spontaneous or Elective: 0 Number of Living Children: 2 - Gestational Age Gestational Age by EDGARD (wks/days): 35 Weeks and 6 Days - History Complications: GDM Review of Systems - Review of Systems Constitutional: No problems Breast: No problems ENT: No problems Cardiovascular: No problems Respiratory: No problems Gastrointestinal: No problems Genitourinary: No problems Musculoskeletal: No problems Neurological: No problems Skin: No problems Vital Signs - Temperature Temperature: 98.3 F Temperature Source: Temporal Artery Scan - Pulse Pulse Oximetery Pulse Rate: 127 Pulse Assessment Method: Pulse Oximetry - Respirations Respiratory Rate: 15 Oxygen Delivery Method: Room Air O2 Sat by Pulse Oximetry: 98 - Blood Pressure Right Arm Sitting Blood Pressure: 134/60 Blood Pressure Mean: 84 Blood Pressure Source: Automatic Cuff Medical Screen Scoring (Pre) - Cervical Exam Dilation: 1-3 cm = 1 Effacement: More than 50% = 2 Membranes: Intact - Uterine Contractions Frequency: < 36 weeks = 6 Duration: > 40 seconds = 2 Intensity: N/A - Maternal Vital Signs Maternal Temperature: N/A Maternal Blood Pressure: N/A Signs of Preeclampsia: N/A Maternal Respirations: N/A - Pain Assessment Pain Location and Character: Abdomen Pain Scale Used: Numeric (1 - 10) Pain Intensity: 5 Pain Description: *Acute Pain Frequency: Intermittent Pain Duration Units: Hours Pain Behavior: Vocalization - Maternal Trauma Maternal Trauma: N/A - Assessment Baseline FHR: 135 Heart Rate - NICHD Category: Category I (Normal) = 0 NST: Reactive Position: N/A Station: N/A - Total Score Total Score (Pre): 11 Physician Notification (Pre) - Notification Comment Comment: pt had been seen in the office today by OB and was diated to 3cm, 90% with buldging bag. pt arrived to triage with c/o contx and brown discharge. initial vag exam is the same, contx q 3-6 min(mild), reactive nst. orders received for accucheck and iv hydration per t.oKamilla Vargas. Medical Screen Scoring (Post) - Uterine Contractions Frequency: > 5 minutes apart = 1 Duration: N/A Intensity: N/A - Maternal Vital Signs Maternal Temperature: N/A Maternal Blood Pressure: N/A Signs of Preeclampsia: N/A Maternal Respirations: N/A - Pain Assessment Pain Intensity: 0 - Maternal Trauma Maternal Trauma: N/A - Total Score Total Score (Post): 1 - Post Treatment Level of Risk Post Treatment Level of Risk: Low (0-5) Physician Notification (Post) - Physician Notified Physician Notified Date: 12/30/17 Physician Notified Time: 14:08 Spoke With: Dr Vargas New Order Received: Yes - Notification Comment Comment: iv hydration spaced contx and pt is feeling much better now. accucheck 92. pt dc'd home per t.nav Vargas and will f/u for appt on 01/03/2018 Disposition - Disposition OB Disposition: Triage, Discharge to home, Written follow up instructions reviewed Discharge Date: 12/30/17 Discharge Time: 14:25 I agree with the RN Medical Screening Exam: Yes Risk & Benefit of care provided described in d/c instruction: Yes Diagnosis: FALSE LABOR BEFORE 37 COMPLETED WEEKS OF GEST, THIRD TRI
== END 2017-12-30 14:25 | disposition home or self-care (01) ==
LOC: FBPOP 12:49
PROVIDERS: ATTEND Obstetrics & Gynecology
DX: O47.03 False labor before 37 completed weeks of gestation, third trimester (principal); Z3A.35 35 weeks gestation of pregnancy
CPT/HCPCS: 59025; 96361; G0463; 99214

== ENCOUNTER 2017-12-31 06:51 | Inpatient (IN) | payer OTHER ==
[2017-12-31 07:12] VITALS: BMI 34.1
[2017-12-31] MEDS ORDERED: CITRIC ACID-SODIUM CITRATE 15 ML CUP PO ONE (07:12)
[2017-12-31] MEDS ORDERED: LACTATED RINGERS 1,000 ML IV ONE (07:12)
[2017-12-31] MEDS ORDERED: ceFAZolin IN SWFI 2 GM/20 ML SYRINGE IVP ONE (07:12)
[2017-12-31 07:21] LABS: Basophils % (A) 0 %; Eosinophils # (A) 0.1 k/uL (0-0.7); Eosinophils % (A) 2 %; HCT 29.4 % (34.0-46.0); HGB 9.6 gm/dL (11.4-16.0); Hypochromasia Slight; Lymphocytes # (A) 1.6 k/uL (1.0-4.8); Lymphocytes % (A) 28 %; MCH 27.5 pg (25.0-35.0); MCHC 32.7 g/dL (31.0-37.0); Mean Platelet Volume 9.5; Monocytes # (A) 0.4 k/uL (0-1.0); Monocytes % (A) 6 %; Neutrophils # (A) 3.5 k/uL (1.3-7.7); Neutrophils % (A) 60 %; Platelet Count 212 k/uL (150-450); Poikilocytosis Slight; RDW 13.4 % (11.5-15.5); WBC 5.8 k/uL (3.8-10.6)
[2017-12-31 07:29] LABS: Glucose,Whole Blood 108 mg/dL (75-99)
[2017-12-31] MEDS ORDERED: NALBUPHINE 10 MG/ML AMPUL ONE (07:45)
[2017-12-31] MEDS ORDERED: MORPHINE SULFATE (PF) 0.3 MG/0.3 ML SYR ONE (07:45)
[2017-12-31] MEDS ORDERED: ONDANSETRON 4 MG/2 ML VIAL ONE (07:45)
[2017-12-31] MEDS ORDERED: OXYTOCIN 10 UNIT/ML 1 ML VIAL ONE (07:45)
--- NOTE | 2017-12-31 07:48 | P.HPOB ---
History of Present Illness H&P Date: 12/31/17 Chief Complaint: Spontaneous rupture of membranes This is a 22-year-old female 3 para 2 with an estimated date of confinement of 01/28/2018, estimated gestational age of 36-0/7 weeks, who presents to labor and delivery with complaints of spontaneous rupture membranes with clear fluid noted early this morning. She has been feeling contractions that have been stronger since rupture of membranes. Her course has been compensated by gestational diabetes. She has been diet controlled but has been told that she needs insulin but has not picked it up yet. She states her fastings are running around the 90s. Her care has been with Dr. Vargas. According to her record, the baby is measuring in the greater than 95th percentile. labs: Blood type-B positive GC/chlamydia-negative Hepatitis B surface antigen-negative Rubella-immune HIV-nonreactive RPR-nonreactive Hemoglobin-12.8 Quad screen-within normal limits One hour Glucola-171 Three-hour Glucola-abnormal Obstetrical history: . History of 2 previous sections at term. Gynecologic history: Noncontributory Review of Systems Constitutional: Denies chills, Denies fever Eyes: denies blurred vision, denies pain Ears, nose, mouth and throat: Denies headache, Denies sore throat Cardiovascular: Denies chest pain, Denies shortness of breath Respiratory: Denies cough Gastrointestinal: Reports abdominal pain (Contractions) Genitourinary: Reports pelvic pain, Reports Musculoskeletal: Reports low back pain Integumentary: Denies pruritus, Denies rash Neurological: Denies numbness, Denies weakness Psychiatric: Denies anxiety, Denies depression Past Medical History Additional Past Medical History / Comment(s): asthma as child, gestational diabetes History of Any Multi-Drug Resistant Organisms: None Reported Past Surgical History: Adenoidectomy, Section (2) Additional Past Surgical History / Comment(s): 2011 c/s, 2003 lasik, Past Anesthesia/Blood Transfusion Reactions: No Reported Reaction Past Psychological History: Anxiety, Depression Additional Psychological History / Comment(s): pt states longstanding depression at intervals. depression score on admission 17. no meds. Smoking Status: Never smoker Past Alcohol Use History: None Reported Past Drug Use History: None Reported Medications and Allergies Home Medications Medication Instructions Recorded Confirmed Type Pnv No.95/Ferrous Fum/Folic AC 1 tab PO HS 10/19/17 12/31/17 History [ Multivitamin Tablet] Allergies Allergy/AdvReac Type Severity Reaction Status Date / Time No Known Allergies Allergy Verified 12/31/17 07:11 Exam Osteopathic Statement: *. No significant issues noted on an osteopathic structural exam other than those noted in the History and Physical/Consult. - Vital Signs Vital signs: Vital Signs Temp Pulse Resp BP 12/31/17 07:03 97.3 F L 106 H 18 141/89 Intake and Output 12/30/17 12/31/17 12/31/17 22:59 06:59 14:59 Other: Weight 98.883 kg HEENT: Within normal limits Heart: Regular rate and rhythm Lungs: Clear to auscultation bilaterally Abdomen: Cervix: 3 cm Amnisure is positive with clear fluid noted Extremities: Negative Homans Results Result Diagrams: 12/31/17 07:10 Abnormal Lab Results - Last 24 Hours (Table) 12/31/17 12/31/17 Range/Units 07:10 07:26 RBC 3.50 L (3.80-5.40) m/uL Hgb 9.6 L (11.4-16.0) gm/dL Hct 29.4 L (34.0-46.0) % POC Glucose (mg/dL) 108 H (75-99) mg/dL Assessment and Plan (1) 36 weeks gestation of Current Visit: Yes Status: Acute Code(s): Z3A.36 - 36 WEEKS GESTATION OF SNOMED Code(s): 12234067 (2) Spontaneous rupture of membranes Current Visit: Yes Status: Acute Code(s): JFH6637 - SNOMED Code(s): 339655772 (3) Gestational diabetes Current Visit: Yes Status: Acute Code(s): O24.419 - GESTATIONAL DIABETES MELLITUS IN , UNSP CONTROL SNOMED Code(s): 23238188 (4) Previous delivery affecting Current Visit: No Status: Acute Code(s): O34.21 - MATERNAL CARE FOR SCAR FROM PREVIOUS * DO NOT USE * SNOMED Code(s): 880656461 (5) Family planning Current Visit: Yes Status: Acute Code(s): Z30.09 - ENCOUNTER FOR OTH GENERAL CNSL AND ADVICE ON CONTRACEPTION SNOMED Code(s): 824966507 Plan: Proceed with repeat low transverse section with bilateral partial salpingectomy for family planning. I have discussed the risks, benefits, and alternative therapies for the above- mentioned procedure and for both sedation/anesthesia as well as necessary blood products administration, if indicated, as they pertain to this patient. The patient has indicated her understanding and acceptance of the risks and procedures discussed.
--- NOTE | 2017-12-31 08:42 | P.OP ---
Date of Procedure: 12/31/17 Preoperative Diagnosis: 1. Intrauterine at 36-0/7 weeks. 2. Spontaneous rupture of membranes. 3. History of previous sections. 4. Gestational diabetes 5. Family planning Postoperative Diagnosis: Same Procedure(s) Performed: Repeat low transverse section with bilateral partial salpingectomy Anesthesia: spinal (Duramorph) Surgeon: Laura Garcia Liturgical Music Director #1: Moni Vera Estimated Blood Loss (ml): 400 Pathology: other (Placenta, portions of right and left fallopian tubes) Condition: stable Disposition: floor Indications for Procedure: This is a 22-year-old female 3 para 2 at 36-0/7 weeks who presented with spontaneous rupture membranes and contractions. She was found to be 3 cm dilated on admission with irregular contractions and positive amnisure with clear fluid noted. She has a history of gestational diabetes during this and was supposed to be on insulin but did not pick it up yet. care has been with Dr. Vargas. She has signed consent form in the office for tubal ligation for family planning. She does have a history of 2 previous sections I have discussed the risks, benefits, and alternative therapies for the above- mentioned procedure and for both sedation/anesthesia as well as necessary blood products administration, if indicated, as they pertain to this patient. The patient has indicated her understanding and acceptance of the risks and procedures discussed. Operative Findings: A viable male infant is noted in the vertex presentation with scores of 8 at 1 minute and 8 at 5 minutes and infant weight of 9 lbs. 4 oz. Normal uterus tubes and ovaries are noted. Description of Procedure: The patient is taken to the operating room where she is placed in the dorsal supine position with leftward tilt after spinal Duramorph anesthesia is given. She is prepped and draped in the normal sterile fashion. Skin was tested and found to be adequately anesthetized. A Pfannenstiel skin incision was made with a scalpel through the previous laparotomy scar. A second knife was used to carry the incision down to the underlying layer of fascia. The fascia was nicked in the midline with a scalpel and then extended laterally bilaterally with Delgado scissors. The anterior lip of the fascia was grasped with 2 Opal clamps and then dissected off the underlying rectus muscle in the midline with Delgado scissors. The inferior aspect of the fascial incision was grasped with 2 Opal clamps and dissected off the underlying rectus muscle and the midline with Delgado scissors. Next the peritoneum layer was tented up with 2 hemostats and then entered sharply with the scalpel. The incision is extended superiorly and inferiorly with Metzenbaum scissors. Next a DeLee retractor is placed. The vesicouterine peritoneum is entered sharply with Metzenbaum scissors and extended laterally bilaterally with Metzenbaum scissors and then the bladder flap is pushed inferiorly. The lower uterine segment is incised in transverse fashion with the scalpel and then bluntly entered with a hemostat. Clear fluid is noted. The incision was then extended laterally bilaterally with 2 fingers. Next the infant's head is delivered through the incision. Nose and mouth are bulb suctioned. The remainder of the infant is easily delivered and placed on mother's abdomen. Cord is clamped and cut. is taken to warmer by nursing staff. Uterine fundus is gently massaged and placenta is delivered manually. Uterus is exteriorized and cleared of all clots and debris. Uterine incision is closed with 0 Vicryl suture in a running locked fashion. A second layer of 0 Vicryl suture is used in a running fashion for hemostasis. Next attention is turned to the tubes. The right fallopian tube is grasped in the midportion and then the mesosalpinx is entered with Bovie cautery. 0 Vicryl suture is tied 2 times around both the proximal and distal portion of the tube. The knuckle of tube was then removed with Metzenbaum scissors and the ends of the tubes are cauterized with Bovie cautery. Excellent hemostasis is noted. The same procedure is carried out on the left fallopian tube. Posterior cul-de- sac is suctioned of all clots and debris. Once good hemostasis is noted on both fallopian tubes and uterine incision, the uterus is returned to the abdomen. Uterus is returned to the abdomen. Incision and both tubal sites are noted to be hemostatic. Peritoneal layer is closed with 0 Vicryl suture in a running fashion. Muscle layer is reapproximated with 0 Vicryl suture in interrupted fashion. Fascia layer is then closed with 0 PDS suture with 2 sutures meeting in the midline and the knots buried in either side and in the midline. The subcutaneous tissue was then closed with 2-0 Vicryl suture. Skin layer was then closed with jorge luis. All sponge and needle counts are correct. The patient is taken to recovery room in stable condition.
[2017-12-31] MEDS ORDERED: ACETAMINOPHEN TAB 325 MG TAB PO PRN (08:44)
[2017-12-31] MEDS ORDERED: NALOXONE 0.4 MG/ML 1 ML VIAL IV PRN ×2 (08:44→09:34)
[2017-12-31] MEDS ORDERED: diphenhydrAMINE 50 MG CAP PO PRN (08:44)
[2017-12-31] MEDS ORDERED: diphenhydrAMINE 25 MG CAP PO PRN (08:44)
[2017-12-31] MEDS ORDERED: diphenhydrAMINE 50 MG/ML 1 ML VIAL IVP PRN ×2 (08:44)
[2017-12-31] MEDS ORDERED: ZOLPIDEM 5 MG TAB PO PRN (08:44)
[2017-12-31] MEDS ORDERED: LANOLIN CREAM 5 GM TUBE TOPICAL PRN (08:44)
[2017-12-31] MEDS ORDERED: SIMETHICONE 80 MG CHEWABLE PO PRN (08:44)
[2017-12-31] MEDS ORDERED: ONDANSETRON 4 MG/2 ML VIAL IVP PRN (08:44)
[2017-12-31] MEDS ORDERED: METOCLOPRAMIDE 5 MG/ML 2 ML VIAL IVP PRN (08:44)
[2017-12-31] MEDS ORDERED: HYDROcodone/APAP 7.5-325MG 1 EACH TAB PO PRN (08:44)
[2017-12-31] MEDS ORDERED: OXYTOCIN 20 UNITS/1000 ML NS 1,000 ML IV SCH (08:45)
[2017-12-31] MEDS ORDERED: MORPHINE SULFATE 4 MG/0.8 ML SYRINGE (INJ) IVP PRN (09:34)
[2017-12-31 11:58] LABS: Hemoglobin A1C 6.4 % (4.0-6.0)
[2017-12-31 12:18] LABS: Glucose,Whole Blood 90 mg/dL (75-99)
[2017-12-31] MEDS: KETOROLAC 30 MG/ML 1 ML VIAL IVP PRN (19:56)
[2017-12-31] MEDS: SENNOSIDES-DOCUSATE SODIUM 1 EACH TAB PO SCH (20:43)
[2017-12-31] MEDS: LACTATED RINGERS 1,000 ML IV SCH ×2 (20:44→20:45)
[2017-12-31 21:06] LABS: Glucose,Whole Blood 138 mg/dL (75-99)
[2018-01-01] MEDS: KETOROLAC 30 MG/ML 1 ML VIAL IVP PRN (02:29)
--- NOTE | 2018-01-01 06:53 | P.PNOBGPC ---
Subjective - Subjective Principal diagnosis: Status post repeat section with tubal postoperative day #1 Interval history: Patient is doing okay. She is ambulating and has urinated. She denies any flatus or bowel movement yet. Baby is in the nursery. Patient reports: Reports appetite normal, Reports voiding normally, Reports pain well controlled, Reports ambulating normally Erick: other (In level I nursery) Objective - Vital Signs Latest vital signs: Vital Signs Temp Pulse Pulse Resp BP BP Pulse Ox 01/01/18 06:00 16 01/01/18 04:00 97.8 F 98 18 131/88 99 01/01/18 02:00 18 01/01/18 00:00 98.3 F 101 H 18 125/80 98 12/31/17 22:00 18 98 12/31/17 20:00 98.2 F 98 16 139/83 98 12/31/17 18:00 16 12/31/17 16:00 97.6 F 81 16 117/71 12/31/17 14:00 16 12/31/17 12:35 97.6 F 89 16 138/76 12/31/17 10:45 96.8 F L 83 14 124/74 12/31/17 10:35 16 12/31/17 10:15 86 14 127/58 12/31/17 09:42 97 16 143/70 12/31/17 09:35 16 96 12/31/17 09:30 98 16 140/65 12/31/17 09:15 95 16 145/75 12/31/17 09:00 106 H 16 121/68 97 12/31/17 08:45 96.1 F L 103 H 16 116/58 12/31/17 07:03 97.3 F L 106 H 18 141/89 Intake and Output 12/31/17 12/31/17 01/01/18 14:59 22:59 06:59 Intake Total 800 Output Total 350 1050 300 Balance -350 -250 -300 Intake: Intake, IV Titration 800 Amount Oxytocin 20 Units/1000 ml 800 Ns 1,000 ml @ Per Protocol IV .Q0M [facility] Rx#: [id number] Output: Urine 350 1050 300 Straight 800 Other: Voiding Method Indwelling Catheter Indwelling Catheter # Voids 1 Weight 98.883 kg - Exam Extremities: Present: normal. Absent: tenderness, edema Abdomen: Present: normal appearance, soft (Faint bowel sounds 4), distention ( Slight) Incision: Present: normal, dry, intact Uterus: Present: normal, firm. Absent: tenderness - Labs Labs: Abnormal Lab Results - Last 24 Hours (Table) 12/31/17 12/31/17 12/31/17 Range/Units 07:10 07:10 07:26 RBC 3.50 L (3.80-5.40) m/uL Hgb 9.6 L (11.4-16.0) gm/dL Hct 29.4 L (34.0-46.0) % POC Glucose (mg/dL) 108 H (75-99) mg/dL Hemoglobin A1c 6.4 H (4.0-6.0) % 12/31/17 Range/Units 21:03 RBC (3.80-5.40) m/uL Hgb (11.4-16.0) gm/dL Hct (34.0-46.0) % POC Glucose (mg/dL) 138 H (75-99) mg/dL Hemoglobin A1c (4.0-6.0) % Assessment and Plan Assessment: Impression is status post repeat section with bilateral partial salpingectomy postoperative day #1. (1) 36 weeks gestation of Current Visit: Yes Status: Acute Code(s): Z3A.36 - 36 WEEKS GESTATION OF SNOMED Code(s): 48371814 (2) Spontaneous rupture of membranes Current Visit: Yes Status: Acute Code(s): EEJ3872 - SNOMED Code(s): 726761157 (3) Gestational diabetes Current Visit: Yes Status: Acute Code(s): O24.419 - GESTATIONAL DIABETES MELLITUS IN , UNSP CONTROL SNOMED Code(s): 11951883 (4) Previous delivery affecting Current Visit: No Status: Acute Code(s): O34.21 - MATERNAL CARE FOR SCAR FROM PREVIOUS * DO NOT USE * SNOMED Code(s): 938686726 (5) Family planning Current Visit: Yes Status: Acute Code(s): Z30.09 - ENCOUNTER FOR OTH GENERAL CNSL AND ADVICE ON CONTRACEPTION SNOMED Code(s): 691664306 Plan: Patient is advised to wait until she has flatus before advancing diet. She is encouraged to ambulate. Will discontinue blood glucose monitoring to when necessary.
[2018-01-01 07:48] LABS: Basophils % (A) 0 %; Eosinophils # (A) 0.1 k/uL (0-0.7); Eosinophils % (A) 2 %; HCT 25.7 % (34.0-46.0); HGB 8.4 gm/dL (11.4-16.0); Hypochromasia Slight; Lymphocytes # (A) 1.2 k/uL (1.0-4.8); Lymphocytes % (A) 19 %; MCH 27.6 pg (25.0-35.0); MCHC 32.6 g/dL (31.0-37.0); MCV 84.6 fL (80.0-100.0); Mean Platelet Volume 9.8; Monocytes # (A) 0.4 k/uL (0-1.0); Monocytes % (A) 6 %; Neutrophils # (A) 4.5 k/uL (1.3-7.7); Neutrophils % (A) 71 %; Platelet Count 198 k/uL (150-450); Poikilocytosis Slight; RBC 3.04 m/uL (3.80-5.40); RDW 13.5 % (11.5-15.5); WBC 6.4 k/uL (3.8-10.6)
--- NOTE | 2018-01-01 08:49 | P.PN ---
Progress Note - Text Date: 01/01/2018 Time: 07:59 The patient is status post section Vital signs stable VAS: 0-10 Patient has no complaints of pain. The patient incurred some minimal itching yesterday, this itching is now subsiding. Pain meds to be managed by service.
[2018-01-01] MEDS: SENNOSIDES-DOCUSATE SODIUM 1 EACH TAB PO SCH ×2 (09:22→20:50)
[2018-01-01] MEDS: IBUPROFEN 600 MG TAB PO PRN (17:31)
[2018-01-01] MEDS: HYDROcodone/APAP 5-325MG 1 EACH TAB PO PRN (20:46)
[2018-01-02] MEDS: IBUPROFEN 600 MG TAB PO PRN ×3 (00:12→15:17)
[2018-01-02] MEDS: HYDROcodone/APAP 5-325MG 1 EACH TAB PO PRN ×3 (03:21→19:50)
[2018-01-02] MEDS: SENNOSIDES-DOCUSATE SODIUM 1 EACH TAB PO SCH ×2 (07:51→19:50)
--- NOTE | 2018-01-02 08:55 | P.PNOBGPC ---
Subjective - Subjective Principal diagnosis: S/P RLTCS POD #2 Interval history: Patient seen and examined. Denies nausea, vomiting, chest and, shortness of breath or calf pain. Patient reports: Reports appetite normal, Reports voiding normally, Reports pain well controlled, Reports ambulating normally Objective - Vital Signs Latest vital signs: Vital Signs Temp Pulse Pulse Resp BP BP Pulse Ox 01/02/18 07:55 99.1 F 102 H 16 141/84 01/02/18 00:00 98.6 F 110 H 16 140/80 98 01/01/18 15:56 98.6 F 92 16 130/74 01/01/18 09:37 98.1 F 99 16 134/66 - Exam Lungs: bilateral: normal Chest: Normal S1, Normal S2 Extremities: Present: normal Abdomen: Present: normal appearance, soft. Absent: distention, tenderness Incision: Present: normal, dry, intact Uterus: Present: normal, firm Assessment and Plan (1) Status post repeat low transverse section Current Visit: Yes Status: Acute Code(s): Z98.891 - HISTORY OF UTERINE SCAR FROM PREVIOUS SURGERY SNOMED Code(s): 135493992 Plan: 1. Increase ambulation 2. Pain control
[2018-01-03] MEDS: IBUPROFEN 600 MG TAB PO PRN ×2 (00:42→16:04)
[2018-01-03] MEDS: HYDROcodone/APAP 5-325MG 1 EACH TAB PO PRN ×2 (06:34→23:54)
[2018-01-03] MEDS: SENNOSIDES-DOCUSATE SODIUM 1 EACH TAB PO SCH ×2 (06:35→21:08)
--- NOTE | 2018-01-03 08:54 | P.PNOBGPC ---
Subjective - Subjective Principal diagnosis: S/P RLTCS POD #3 Interval history: Pt seen and examined. Feeling well. Denies N/V, F/C, CP, SOB or calf pain. Patient reports: Reports appetite normal, Reports voiding normally, Reports pain well controlled, Reports ambulating normally Objective - Vital Signs Latest vital signs: Vital Signs Temp Pulse Resp BP BP Pulse Ox 01/03/18 00:00 98.1 F 94 16 144/88 97 01/02/18 15:22 98.4 F 89 16 148/89 100 - Exam Lungs: bilateral: normal Chest: Normal S1, Normal S2 Extremities: Present: normal Abdomen: Present: normal appearance, soft. Absent: distention, tenderness Incision: Present: normal, dry, intact Uterus: Present: normal, firm Assessment and Plan (1) Status post repeat low transverse section Current Visit: Yes Status: Acute Code(s): Z98.891 - HISTORY OF UTERINE SCAR FROM PREVIOUS SURGERY SNOMED Code(s): 286882909 Plan: 1. pain control 2. continue pumping and breast feeding when able.
[2018-01-03 17:22] LABS: HCT 25.4 % (34.0-46.0); HGB 8.3 gm/dL (11.4-16.0); Hypochromasia Slight; MCH 27.5 pg (25.0-35.0); MCHC 32.7 g/dL (31.0-37.0); MCV 84.2 fL (80.0-100.0); Mean Platelet Volume 8.8; Platelet Count 327 k/uL (150-450); Poikilocytosis Slight; RBC 3.02 m/uL (3.80-5.40); RDW 13.6 % (11.5-15.5); WBC 6.4 k/uL (3.8-10.6)
[2018-01-03 17:34] LABS: ALT 22 U/L (9-52); AST 34 U/L (14-36)
[2018-01-03 20:59] VITALS: BP 139/76
[2018-01-04] MEDS: SENNOSIDES-DOCUSATE SODIUM 1 EACH TAB PO SCH (07:55)
[2018-01-04] MEDS: HYDROcodone/APAP 5-325MG 1 EACH TAB PO PRN (07:56)
--- NOTE | 2018-01-04 08:05 | P.DS ---
Providers Date of admission: 12/31/17 06:51 Expected date of discharge: 01/04/18 Attending physician: Berenice Vargas Primary care physician: Stated None - Discharge Diagnosis(es) (1) Status post repeat low transverse section Current Visit: Yes Status: Acute Hospital Course: Patient presented with spontaneous rupture of membranes. She underwent a repeat low transverse . her blood pressure did increase up to 150/90, but mostly with just 130s over 80s. She denies headache, nausea, vomiting, chest pain, shortness of breath or calf pain. Her pain is well- controlled she is ambulating voiding without difficulty. Her incision is clean , dry, intact and no signs of infection. She'll be discharged home post operative day #4 in stable condition to follow-up with me in one week. Plan - Discharge Summary New Discharge Prescriptions: New HYDROcodone/APAP 7.5-325MG [[place] 7.5-325] 1 each PO Q6H PRN #30 tab PRN Reason: Severe Pain Ibuprofen [Motrin] 600 mg PO Q6HR PRN #30 tab PRN Reason: Mild Pain Or Fever >= 100.5 No Action Pnv No.95/Ferrous Fum/Folic AC [ Multivitamin Tablet] 1 tab PO HS Discharge Medication List Pnv No.95/Ferrous Fum/Folic AC [ Multivitamin Tablet] 1 tab PO HS [History] HYDROcodone/APAP 7.5-325MG [[place] 7.5-325] 1 each PO Q6H PRN #30 tab 01/04/18 [ Rx] Ibuprofen [Motrin] 600 mg PO Q6HR PRN #30 tab 01/04/18 [Rx] Follow up Appointment(s)/Referral(s): Berenice Vargas DO [Doctor of Osteopathic Medicine] - 1 Week Discharge Disposition: HOME SELF-CARE
[2018-01-04 09:31] VITALS: RESP 20
[2018-01-04 09:33] VITALS: PULSE 92; TEMP 99.7
== END 2018-01-04 12:50 | disposition home or self-care (01) | DRG 766 ==
LOC: 4FBP 06:51
PROVIDERS: ADMIT Obstetrics & Gynecology; ATTEND Obstetrics & Gynecology
PROC: 10D00Z1 Extraction of Products of Conception, Low, Open Approach (ICD-10-PCS; principal; 2017-12-31 08:00)
PROC: 0UB70ZZ Excision of Bilateral Fallopian Tubes, Open Approach (ICD-10-PCS; principal; 2017-12-31 08:00)
DX: O34.211 Maternal care for low transverse scar from previous cesarean delivery (principal); Z37.0 Single live birth; O24.420 Gestational diabetes mellitus in childbirth, diet controlled; Z3A.36 36 weeks gestation of pregnancy
CPT/HCPCS: 59025; 83036; 84450; 84460; 85025; 85027; 86850; 86900; 86901; 88302; 88307; 99213

== ENCOUNTER 2018-08-17 23:57 | Emergency (ER) | payer OTHER ==
[2018-08-18 00:17] VITALS: BP 135/88; PULSE 72; RESP 18; TEMP 97.6
[2018-08-18] MEDS ORDERED: cefTRIAXone 250 MG VIAL IM STA (01:24)
[2018-08-18] MEDS ORDERED: AZITHROMYCIN 500 MG TAB PO STA (01:24)
--- NOTE | 2018-08-18 01:38 | ED ---
Female Urogenital HPI - General Chief complaint: Urogenital Stated complaint: STI check Time Seen by Provider: 08/18/18 01:05 Source: patient Mode of arrival: ambulatory Limitations: no limitations - History of Present Illness Initial comments: 23-year-old female presents to the emergency Department today requesting testing and treatment for sexual transmitted infection. Patient reports that her partner told her that he was tested and treated at the health department. He did not tell her if he had any specific positive testing but did receive treatment and advised her she should be tested. Patient denies any symptoms. She does not express any vaginal discharge or dysuria. Patient currently mistreating. Patient has a history of tubal ligation and has no concern for . - Related Data Home Medications Medication Instructions Recorded Confirmed Pnv No.95/Ferrous Fum/Folic AC 1 tab PO HS 10/19/17 12/31/17 [ Multivitamin Tablet] Previous Rx's Medication Instructions Recorded HYDROcodone/APAP 7.5-325MG [Alkol 1 each PO Q6H PRN #30 tab 01/04/18 7.5-325] Ibuprofen [Motrin] 600 mg PO Q6HR PRN #30 tab 01/04/18 metroNIDAZOLE [Flagyl] 500 mg PO BID #14 tab 08/18/18 Allergies Allergy/AdvReac Type Severity Reaction Status Date / Time No Known Allergies Allergy Verified 08/18/18 00:16 Review of Systems ROS Statement: Those systems with pertinent positive or pertinent negative responses have been documented in the HPI. ROS Other: All systems not noted in ROS Statement are negative. Past Medical History Past Medical History: No Reported History Additional Past Medical History / Comment(s): asthma as child, gestational diabetes History of Any Multi-Drug Resistant Organisms: None Reported Past Surgical History: Adenoidectomy, Section Additional Past Surgical History / Comment(s): 2011 c/s, 2003 lasik, Past Anesthesia/Blood Transfusion Reactions: No Reported Reaction Past Psychological History: Anxiety, Depression Smoking Status: Never smoker Past Alcohol Use History: Occasional Past Drug Use History: None Reported General Exam - General Exam Comments Initial Comments: Physical Exam GENERAL: Patient is well-developed and well-nourished. Patient is nontoxic and well- hydrated and is in no distress. HENT: Normocephalic, Atraumatic. EYES: PERRL, EOMI PULMONARY: Unlabored respirations. No audible rales rhonchi or wheezing was noted. CARDIOVASCULAR: There is a regular rate and rhythm without any murmurs gallops or rubs. ABDOMEN: Soft and nontender with normal bowel sounds. SKIN: Skin is clear with no lesions or rashes and otherwise unremarkable. : Deferred - patient declined NEUROLOGIC: Patient is alert and oriented x3. Moving all extremities spontaneously MUSCULOSKELETAL: Normal extremities with adequate strength and full range of motion. No lower extremity swelling or edema. No calf tenderness. PSYCHIATRIC: Normal psychiatric evaluation. Limitations: no limitations Limitations: no limitations Course Vital Signs 08/18/18 00:13 Temperature 97.6 F Pulse Rate 72 Respiratory 18 Rate Blood Pressure 135/88 O2 Sat by Pulse 99 Oximetry Medical Decision Making - Medical Decision Making The patient was seen and evaluated, history is obtained from the patient Patient's currently menstruating and declined a pelvic exam, patient will self swabbed for a cervical swab Patient agreed to treatment for social STD. She will be given Rocephin and azithromycin in the department and be discharged home with by mouth Flagyl Questions pertaining care answered best my ability return parameters discussed patient is discharged home in stable condition Disposition Clinical Impression: Exposure to sexually transmitted disease (STD) Disposition: HOME SELF-CARE Condition: Good Instructions: Sexually Transmitted Diseases (ED) Prescriptions: metroNIDAZOLE [Flagyl] 500 mg PO BID #14 tab Is patient prescribed a controlled substance at d/c from ED?: No Referrals: None,Stated [Primary Care Provider] - 1-2 days
[2018-08-19 13:30] LABS: C. trachomatis,PCR Positive (Neg,Equiv); Chlamydia trachomatis Source Cervix; N. gonorrhoeae,PCR Negative (Neg,Equiv); Neisseria Source Cervix
== END 2018-08-18 02:00 | disposition home or self-care (01) ==
LOC: EC 23:57
DX: Z20.2 Contact with and (suspected) exposure to infections with a predominantly sexual mode of transmission (principal); Z98.51 Tubal ligation status
CPT/HCPCS: 87070; 87205; 87491; 87591; 87808; 96372; 99283

== ENCOUNTER → 2020-05-27 | Outpatient (CLI) | payer OTHER | END | disposition home or self-care (01) | LOC: LABWHC1 09:32 | PROVIDERS: ATTEND Emergency Medicine | DX: Z20.828 Contact with and (suspected) exposure to other viral communicable diseases (principal) | CPT/HCPCS: U0003; C9803 ==

== ENCOUNTER 2020-09-01 19:24 | Inpatient (IN) | payer MEDICAID, OTHER ==
--- NOTE | 2020-09-01 21:14 | ED ---
General Adult HPI - General Chief complaint: Psychiatric Symptoms Stated complaint: Mental Health Time Seen by Provider: 09/01/20 19:29 Source: patient, RN notes reviewed, old records reviewed Mode of arrival: ambulatory Limitations: no limitations - History of Present Illness Initial comments: 25-year-old female patient to ED for evaluation of psychiatric complaint. Patient was reportedly upset made comments to the [place]. She has been depressed for sometime she states. She denies any other physical complaints. Denies any action to hurt herself. Systemic: Pt denies fatigue, fever/chills, rash. Pt denies weakness, night sweats, weight loss. Neuro: Pt denies headache, visual disturbances, syncope or pre-syncope. HEENT: Pt denies ocular discharge or irritation, otalgia, rhinorrhea, pharyngitis or notable lymphadenopathy. Cardiopulmonary: Pt denies chest pain, SOB, heart palpitations, dyspnea on exe rtion. Abdominal/GI: Pt denies abdominal pain, n/v/d. : Pt denies dysuria, burning w/ urination, frequency/urgency. Denies new onset urinary or bowel incontinence. MSK: Pt denies myalgia, loss of strength or function in extremities. Neuro: Pt denies new onset weakness, paresthesias. - Related Data Home Medications Medication Instructions Recorded Confirmed No Known Home Medications 09/01/20 09/01/20 Allergies Allergy/AdvReac Type Severity Reaction Status Date / Time No Known Allergies Allergy Verified 09/01/20 20:06 Review of Systems ROS Statement: Those systems with pertinent positive or pertinent negative responses have been documented in the HPI. ROS Other: All systems not noted in ROS Statement are negative. Past Medical History Past Medical History: No Reported History Additional Past Medical History / Comment(s): asthma as child, gestational diabetes History of Any Multi-Drug Resistant Organisms: None Reported Past Surgical History: Adenoidectomy, Section Additional Past Surgical History / Comment(s): 2012 c/s, 2003 lasik, Past Anesthesia/Blood Transfusion Reactions: No Reported Reaction Past Psychological History: Anxiety, Depression Past Alcohol Use History: Occasional Past Drug Use History: None Reported General Exam - General Exam Comments Initial Comments: Constitutional: NAD, AOX3, Pt has pleasant affect. HEENT: NC/AT, trachea midline, neck supple, no lymphadenopathy. External ears appear normal, without discharge. Mucous membranes moist. Eyes PERRLA, EOM intact. There is no scleral icterus. No pallor noted. Cardiopulmonary: RRR, no murmurs, rubs or gallops, no JVD noted. Lungs CTAB in anterior and posterior julian. No peripheral edema. Abdominal exam: Abdomen soft and non-distended. Abdomen non-tender to palpation in all 4 quadrants. Bowel sounds active in LLQ. No hepatosplenomegaly. No ecchymosis Neuro: CN II-XII grossly intact. No nuchal rigidity. MSK: Full active ROM in upper and lower extremities, 5/5 stregnth. Limitations: no limitations Course Vital Signs 09/01/20 19:25 Temperature 99.0 F Pulse Rate 114 H Respiratory 18 Rate Blood Pressure 137/89 O2 Sat by Pulse 100 Oximetry Medical Decision Making - Medical Decision Making 25-year-old female patient ED for evaluation of psychiatric complaint. This will exam negative for acute pathology. Patient [place] to psychiatric services recommended for inpatient psychiatric admission. Patient is agreeable to this and will sign himself in. Case discussed with Dr. Stover. Disposition Clinical Impression: Depression, Suicidal ideations Disposition: ADMITTED IP TO THIS HOSP Condition: Serious Is patient prescribed a controlled substance at d/c from ED?: No Referrals: None,Stated [Primary Care Provider] - 1-2 days
[2020-09-01] MEDS ORDERED: MAG HYDROX/AL HYDROX/SIMETH 30 ML CUP PO PRN (21:51)
[2020-09-01] MEDS ORDERED: MAGNESIUM HYDROXIDE 2,400 MG/10 ML CUP PO PRN (21:51)
[2020-09-01] MEDS ORDERED: ACETAMINOPHEN TAB 325 MG TAB PO PRN (21:51)
[2020-09-01] MEDS ORDERED: LORazepam 1 MG TAB PO PRN (21:51)
[2020-09-01] MEDS ORDERED: HALOPERIDOL LACTATE 5 MG/ML 1 ML VIAL IM PRN (21:52)
[2020-09-01] MEDS ORDERED: LORazepam 2 MG/ML INJ IM PRN (21:52)
[2020-09-01] MEDS ORDERED: haloperidoL 5 MG TAB PO PRN (21:52)
--- NOTE | 2020-09-02 02:25 | P.MDCNMH ---
History of Present Illness H&P Date: 09/02/20 Chief Complaint: depression 25 year old female no significant past medical history [patient comes in for evaluation regarding depression and suicidal ideation , she was thinking of jumping into the river, she otherwise denies any medical concerns, denies any URI symptoms, denies any GI changes or urinary changes Review of Systems Pertinent positives as noted in HPI. All other systems were reviewed and are negative Past Medical History Past Medical History: No Reported History Additional Past Medical History / Comment(s): asthma as child, gestational diabetes History of Any Multi-Drug Resistant Organisms: None Reported Past Surgical History: Adenoidectomy, Section Additional Past Surgical History / Comment(s): 2011 c/s, 2002 lasik, Past Anesthesia/Blood Transfusion Reactions: No Reported Reaction Smoking Status: Never smoker Medications and Allergies Home Medications Medication Instructions Recorded Confirmed Type No Known Home Medications 09/01/20 09/01/20 History Allergies Allergy/AdvReac Type Severity Reaction Status Date / Time No Known Allergies Allergy Verified 09/01/20 20:06 Physical Exam Vitals: Vital Signs Temp Pulse Pulse Resp BP BP Pulse Ox 09/01/20 22:27 97.6 F 100 18 125/71 09/01/20 19:25 99.0 F 114 H 18 137/89 100 Intake and Output 09/01/20 09/01/20 09/02/20 14:59 22:59 06:59 Other: Weight 84.822 kg Constitutional: No acute distress, conversant, pleasant Eyes: Anicteric sclerae, moist conjunctiva, Pupils equal round reactive to light ENMT: NC/AT Oropharynx clear, no erythema, or exudates Neck: Supple, FROM, no masses, or JVD No carotid bruits No thyromegaly Lungs: Clear to auscultation Clear to percussion Normal respiratory effort, no accessory muscle use Cardiovascular: Heart regular in rate and rhythm, No murmurs, gallops, or rubs No peripheral edema Abdominal: Soft Nontender, no guarding, rebound or rigidity Abdomen moving with respiration Normoactive bowel sounds No hepatomegaly, No splenomegaly No palpable mass No abdominal wall hernia noted Skin: Normal temperature, tone, texture, turgor No induration No subcutaneous nodules No rash, lesions No ulcers Extremities: No digital cyanosis No clubbing Pedal pulses intact and symmetrical Radial pulses intact and symmetrical No calf tenderness Psychiatric: Alert and oriented to person, place and time Depressed affect fair judgement Neuro Muscles Strength 5/5 in all 4 extremities Sensation to light touch grossly present throughout Cranial nerves II-XII grossly intact No focal sensory deficits Lymphatics: no palpable cervical or supraclavicular , or inguinal lymph nodes Cranial Nerve Examination - Cranial Nerves Cranial Nerve II- Optic: Intact Cranial Nerve III- Oculomotor: Intact Cranial Nerve IV- Trochlear: Intact Cranial Nerve V- Trigeminal: Intact Cranial Nerve - Abducens: Intact Cranial Nerve VII- Facial: Intact Cranial Nerve VIII- Auditory: Intact Cranial Nerve IX- Glossopharyngeal: Intact Cranial Nerve X- Vagus: Intact Cranial Nerve XI- Accessory: Intact Cranial Nerve XII- Hypoglossal: Intact Assessment and Plan Assessment: depression suicidal ideation management per psych Follow-up labs Thank you for allowing us to participate in the care of this patient. We will follow peripherally. Do not hesitate to contact us with questions. Someone can be reached from the [facility] hospitalist group at all hours of the day at [phone].
[2020-09-02 08:17] LABS: ALT 13 U/L (4-34); AST 24 U/L (14-36); African American GFR (CKD) >90 (>60 ml/min/1.73 sqM); Albumin 4.3 g/dL (3.5-5.0); Alkaline Phosphatase 61 U/L (38-126); Anion Gap 6 mmol/L; Blood Urea Nitrogen 6 mg/dL (7-17); Calcium 9.2 mg/dL (8.4-10.2); Carbon Dioxide 25 mmol/L (22-30); Chloride 106 mmol/L (98-107); Cholesterol 149 mg/dL (<200); Glucose 103 mg/dL (74-99); HDL Cholesterol 46 mg/dL (40-60); LDL Cholesterol,Calculated 89 mg/dL (0-99); Non-African American GFR(CKD) >90 (>60 ml/min/1.73 sqM); Potassium 4.3 mmol/L (3.5-5.1); Sodium 137 mmol/L (137-145); Total Bilirubin 0.5 mg/dL (0.2-1.3); Total Protein 7.9 g/dL (6.3-8.2); Triglycerides 70 mg/dL (<150)
[2020-09-02 08:35] LABS: Basophils % (A) 1 %; Eosinophils # (A) 0.1 k/uL (0-0.7); Eosinophils % (A) 3 %; HCT 36.7 % (34.0-46.0); Lymphocytes # (A) 2.4 k/uL (1.0-4.8); Lymphocytes % (A) 48 %; MCH 29.4 pg (25.0-35.0); MCHC 32.8 g/dL (31.0-37.0); MCV 89.6 fL (80.0-100.0); Mean Platelet Volume 8.1; Monocytes # (A) 0.3 k/uL (0-1.0); Monocytes % (A) 5 %; Neutrophils % (A) 40 %; Platelet Count 284 k/uL (150-450); RDW 14.1 % (11.5-15.5); WBC 5.1 k/uL (3.8-10.6)
[2020-09-02] MEDS ORDERED: FLUoxetine HCL 10 MG CAP PO STA (11:52)
--- NOTE | 2020-09-02 12:07 | P.HP ---
Psychiatric H&P - . H&P Date: 09/02/20 History & Physical: Allergies Allergy/AdvReac Type Severity Reaction Status Date / Time No Known Allergies Allergy Verified 09/01/20 20:06 Vital Signs Temp 97.6 F 09/01/20 22:27 Pulse 100 09/01/20 22:27 Resp 18 09/01/20 22:27 BP 125/71 09/01/20 22:27 Pulse Ox 100 09/01/20 19:25 Intake & Output 09/01/20 09/02/20 09/02/20 18:59 06:59 18:59 Weight 84.822 kg Laboratory Last Values WBC 5.1 k/uL (3.8-10.6) 09/02/20 07:37 RBC 4.10 m/uL (3.80-5.40) 09/02/20 07:37 Hgb 12.0 gm/dL (11.4-16.0) 09/02/20 07:37 Hct 36.7 % (34.0-46.0) 09/02/20 07:37 MCV 89.6 fL (80.0-100.0) 09/02/20 07:37 MCH 29.4 pg (25.0-35.0) 09/02/20 07:37 MCHC 32.8 g/dL (31.0-37.0) 09/02/20 07:37 RDW 14.1 % (11.5-15.5) 09/02/20 07:37 Plt Count 284 k/uL (150-450) 09/02/20 07:37 MPV 8.1 09/02/20 07:37 Neutrophils % 40 % 09/02/20 07:37 Lymphocytes % 48 % 09/02/20 07:37 Monocytes % 5 % 09/02/20 07:37 Eosinophils % 3 % 09/02/20 07:37 Basophils % 1 % 09/02/20 07:37 Neutrophils # 2.0 k/uL (1.3-7.7) 09/02/20 07:37 Lymphocytes # 2.4 k/uL (1.0-4.8) 09/02/20 07:37 Monocytes # 0.3 k/uL (0-1.0) 09/02/20 07:37 Eosinophils # 0.1 k/uL (0-0.7) 09/02/20 07:37 Basophils # 0.0 k/uL (0-0.2) 09/02/20 07:37 Sodium 137 mmol/L (137-145) 09/02/20 07:37 Potassium 4.3 mmol/L (3.5-5.1) 09/02/20 07:37 Chloride 106 mmol/L (98-107) 09/02/20 07:37 Carbon Dioxide 25 mmol/L (22-30) 09/02/20 07:37 Anion Gap 6 mmol/L 09/02/20 07:37 BUN 6 mg/dL (7-17) L 09/02/20 07:37 Creatinine 0.73 mg/dL (0.52-1.04) 09/02/20 07:37 Est GFR (CKD-EPI)AfAm >90 (>60 ml/min/1.73 sqM) 09/02/20 07:37 Est GFR (CKD-EPI)NonAf >90 (>60 ml/min/1.73 sqM) 09/02/20 07:37 Glucose 103 mg/dL (74-99) H 09/02/20 07:37 Calcium 9.2 mg/dL (8.4-10.2) 09/02/20 07:37 Total Bilirubin 0.5 mg/dL (0.2-1.3) 09/02/20 07:37 AST 24 U/L (14-36) 09/02/20 07:37 ALT 13 U/L (4-34) 09/02/20 07:37 Alkaline Phosphatase 61 U/L (38-126) 09/02/20 07:37 Total Protein 7.9 g/dL (6.3-8.2) 09/02/20 07:37 Albumin 4.3 g/dL (3.5-5.0) 09/02/20 07:37 Triglycerides 70 mg/dL (<150) 09/02/20 07:37 Cholesterol 149 mg/dL (<200) 09/02/20 07:37 LDL Cholesterol, Calc 89 mg/dL (0-99) 09/02/20 07:37 HDL Cholesterol 46 mg/dL (40-60) 09/02/20 07:37 TSH 1.070 mIU/L (0.465-4.680) 09/02/20 07:37 Coronavirus (PCR) Not Detected (Not Detectd) 09/01/20 20:57 09/02/20 11:56 IDENTIFYING DATA: Patient is a single, employed, 25-year-old after [place] female who was brought to the emergency department for suicidal ideation with a plan to jump into a river. HPI: Patient presented to the hospital on 09/01/2020 after she reportedly made threats that she would jump into the river to commit suicide after an argument with the father of her children. Patient expresses that this has been an ongoing stressor for her. She does report that she has been significantly depressed over the past few years regardless of the stressor. She endorses significant symptoms of hopelessness, helplessness, low mood, anhedonia, and suicidal ideation. She has had 2 prior attempts at suicide including overdosing in 2016 and attempting to hang herself when she was a teenager. Currently the patient is not reporting any suicidal or homicidal ideation, intention, and/or p rosalio. She reports that she was just having a bad day and that the argument with the father of her children just contributed further onto it. The patient is not reporting any significant history of bipolar disorder. She reports no history of increased goal-directed behavior, grandiosity, or periods of excessive energy. She is not reporting any auditory or visual hallucinations. She denies any paranoia or delusions. She has a history of mental health treatment but has not been adherent with any of her treatment over the past 2 years. She is unable to recall when she last took medications. PAST PSYCHIATRIC HISTORY: Patient states that she has been previously diagnosed with major depressive disorder. She has had previous trials of medications including Wellbutrin, Celexa, Adderall, and Xanax. She previously overdosed on Wellbutrin, Adderall, and Xanax. She has had 1 prior psychiatric hospitalization back in 2016 on this unit. Patient reports that she is not currently open with any outpatient psychiatric follow-up. She has had 2 prior attempts at suicide in the past including overdosing in 2016 and attempting to hang herself when she was a teenager. PMH: Gestational diabetes. ALLERGIES: NO KNOWN DRUG ALLERGIES CHEMICAL DEPENDENCY HISTORY: Patient denies any tobacco, alcohol, marijuana, or illicit drug use. FAMILY PSYCHIATRIC/SUBSTANCE USE HISTORY: Patient reports that her mother is alcoholic. SOCIAL HISTORY: Patient was adopted by her cousin. The patient has no knowledge about her father. She currently is living in [place]. She is currently employed with [email or web address]. She completed high school. She has 3 children, an 8-year-old girl, 6-year-old girl, and a 2-year-old boy. All these children are with the same father. All are currently with him right now. She reports that she is not mosque. She has no current legal issues. MENTAL STATUS EXAM: General Appearance: Patient appears to be stated age is alert, directable, and attempts to cooperate. Patient appears to have good hygiene and grooming. Wearing glasses. Behavior: Patient is seated without any agitated behavior. Eye contact is poor. Withdrawn. Speech: Patient's speech is fluent and nonpressured. Mood/Affect: Patient reports their mood is depressed, affect is congruent and constricted. Suicidality/Homicidality: Patient denies having any homicidal ideation intent or plan. Denies any suicidal ideations intent or plan Perceptions: Patient denies any visual hallucinations and denies any auditory hallucinations Though content/process: There is no evidence of any delusional thought content and thought process is linear and goal-directed. Memory and concentration: AOX3, grossly intact for the purposes of this session. Can spell "WORLD" backwards Judgment and insight: Poor STRENGTHS/WEAKNESSES: Strength is that patient is gainfully employed and has housing. Weakness is that patient has poor judgment and poor coping skills. INTELLECT: average IMPRESSIONS: Major depressive disorder, recurrent, severe PLAN: -Patient is admitted under voluntary status to MHU for stabilization of psychiatric symptoms and safety. Patient signed adult voluntary form and medication consent and is placed in patient's chart. -Medications : Will start patient on Prozac 30 mg by mouth daily for depression -Ativan and Haldol PRN for agitation/aggression -Patient was informed of the risks, benefits and side effects of the medication and patient verbally consented to taking the medications. Patient signed med consent form and was placed in chart. -Internal Medicine consult to perform medical evaluation and physical. -SW on board for discharge planning. Encourage patient to participate in groups to work on coping skills.
[2020-09-02 14:11] LABS: Hemoglobin A1C 5.9 % (4.0-6.0)
[2020-09-03 06:48] VITALS: BP 102/62; PULSE 82; RESP 16
[2020-09-03] MEDS ORDERED: FLUoxetine HCL 10 MG CAP PO SCH (09:00)
--- NOTE | 2020-09-03 10:35 | P.DS ---
Providers Date of admission: 09/01/20 21:38 Expected date of discharge: 09/03/20 Attending physician: Dani Garcia MD Consults: 09/01/20 21:51 Consult Physician Routine Consulting Provider: Jamie Conrad Consult Reason/Comments: H&P and medical Do you want consulting provider notified?: Yes Primary care physician: Stated None - Discharge Diagnosis(es) (1) Major depressive disorder Current Visit: Yes Status: Acute Priority: High Hospital Course: Admission HPI: Patient is a single, employed, 25-year-old after [place] female who was brought to the emergency department for suicidal ideation with a plan to jump into a river. Patient presented to the hospital on 09/01/2020 after she reportedly made threats that she would jump into the river to commit suicide after an argument with the father of her children. Patient expresses that this has been an ongoing stressor for her. She does report that she has been significantly depressed over the past few years regardless of the stressor. She endorses significant symptoms of hopelessness, helplessness, low mood, anhedonia, and suicidal ideation. She has had 2 prior attempts at suicide including overdosing in 2016 and attempting to hang herself when she was a teenager. Currently the patient is not reporting any suicidal or homicidal ideation, intention, and/or plan. She reports that she was just having a bad day and that the argument with the father of her children just contributed further onto it. The patient is not reporting any significant history of bipolar disorder. She reports no history of increased goal-directed behavior, grandiosity, or periods of excessive energy. She is not reporting any auditory or visual hallucinations. She denies any paranoia or delusions. She has a history of mental health treatment but has not been adherent with any of her treatment over the past 2 years. She is unable to recall when she last took medications. Hospital course: Upon admission to the unit patient was initially expressing remorse for her actions as well as endorsing significant symptoms of depression. She was agreeable to commence treatment. The patient was started on Prozac to address depressive disorder. Patient discussed at length her ongoing stressors leroy grier in regards to father of her children. The patient states that she has many reasons to live including for her children, her family, and her job. Patient tolerated her Prozac well and is not reporting any significant side effects. The day of discharge, the patient is not reporting any suicidal or homicidal ideation, intention, and/or plan. She is not reporting any auditory or visual hallucinations. She denies any paranoia or any delusions. She does express that the father of her children set up an appointment for therapy for himself this coming September. Patient reports that she does require therapy and counseling services upon discharge. She is future oriented and is excited to spend the new years with her family and children. Mental status exam: General Appearance: Patient appears her stated age, with good hygiene and grooming, and in no apparent distress. Behavior: Patient is calmly seated without any agitated behavior. Eye contact is appropriate. Speech: Patient's speech is fluent and nonpressured. Mood/Affect: Patient reports their mood is "doing okay", affect is congruent and euthymic. Suicidality/Homicidality: Patient denies having any suicidal or homicidal id eation intent or plan. Perceptions: Patient denies any auditory or visual hallucinations. Though content/process: There is no evidence of any delusional thought content and thought process is linear, goal-directed, and future oriented. Memory and concentration: AOX3, grossly intact for the purposes of this session. Can spell "WORLD" backwards correctly. Judgment and insight: Improved Impression: Major depressive disorder Plan: -Continue with discharge today as patient has improved and stabilized psychiatrically and is not currently an imminent threat to herself and/or others. Patient will remain at chronically elevated risk for harm due to her prior attempts at suicide. -Continue medications: Prozac 30 mg by mouth daily for depression -Patient was counseled on the need for medication compliance and appropriate follow-up at mental health and also primary care for medical issues. Patient verbalized understanding and agreed. -Social work to arrange for and conduct family meeting to ensure safety upon discharge and answer any questions/concerns. Social work also to arrange for patients follow up appointments for psychiatric care along with follow up with primary care provider. -Patient counseled on abstaining from recreational drugs and marijuana and alcohol. Was informed/educated on the adverse effects on their physical and mental health. Patient verbally agreed and understood. -Patient was instructed to return to the hospital or seek immediate medical care if their psychiatric or medical symptoms do worsen or reoccur. -Psychoeducation and supportive therapy provided to patient. Risks and benefits of pharmacological treatment versus the risks and benefits of nontreatment weight and discussed. Informed consent discussion held. Common side effects of psychotropics discussed such as, but not limited to headache, GI disturbance, sexual dysfunction, movement disorders, sedation, and orthostatic hypotension. Life threatening and blackbox warnings of prescribed medications also discussed. Potential risks of operating a vehicle or heavy machinery discussed with patient at length. Advised on importance of compliance and a reliable and responsible manner. Patient advised to review FDA consumer labeling of all medications prior to taking. Patient verbalized understanding of potential risks, and agrees with current treatment plan. Patient advised to medically contact physician/emergency personnel if any acute changes in condition occur. Vital Signs Temp 98 F 09/03/20 06:26 Pulse 82 09/03/20 06:26 Resp 16 09/03/20 06:26 BP 102/62 09/03/20 06:26 Pulse Ox 100 09/01/20 19:25 Laboratory Results WBC 5.1 k/uL (3.8-10.6) 09/02/20 07:37 RBC 4.10 m/uL (3.80-5.40) 09/02/20 07:37 Hgb 12.0 gm/dL (11.4-16.0) 09/02/20 07:37 Hct 36.7 % (34.0-46.0) 09/02/20 07:37 MCV 89.6 fL (80.0-100.0) 09/02/20 07:37 MCH 29.4 pg (25.0-35.0) 09/02/20 07:37 MCHC 32.8 g/dL (31.0-37.0) 09/02/20 07:37 RDW 14.1 % (11.5-15.5) 09/02/20 07:37 Plt Count 284 k/uL (150-450) 09/02/20 07:37 MPV 8.1 09/02/20 07:37 Neutrophils % 40 % 09/02/20 07:37 Lymphocytes % 48 % 09/02/20 07:37 Monocytes % 5 % 09/02/20 07:37 Eosinophils % 3 % 09/02/20 07:37 Basophils % 1 % 09/02/20 07:37 Neutrophils # 2.0 k/uL (1.3-7.7) 09/02/20 07:37 Lymphocytes # 2.4 k/uL (1.0-4.8) 09/02/20 07:37 Monocytes # 0.3 k/uL (0-1.0) 09/02/20 07:37 Eosinophils # 0.1 k/uL (0-0.7) 09/02/20 07:37 Basophils # 0.0 k/uL (0-0.2) 09/02/20 07:37 Sodium 137 mmol/L (137-145) 09/02/20 07:37 Potassium 4.3 mmol/L (3.5-5.1) 09/02/20 07:37 Chloride 106 mmol/L (98-107) 09/02/20 07:37 Carbon Dioxide 25 mmol/L (22-30) 09/02/20 07:37 Anion Gap 6 mmol/L 09/02/20 07:37 BUN 6 mg/dL (7-17) L 09/02/20 07:37 Creatinine 0.73 mg/dL (0.52-1.04) 09/02/20 07:37 Est GFR (CKD-EPI)AfAm >90 (>60 ml/min/1.73 sqM) 09/02/20 07:37 Est GFR (CKD-EPI)NonAf >90 (>60 ml/min/1.73 sqM) 09/02/20 07:37 Glucose 103 mg/dL (74-99) H 09/02/20 07:[address] Glu mg/dL 123 09/02/20 07:37 Hemoglobin A1c 5.9 % (4.0-6.0) 09/02/20 07:37 Calcium 9.2 mg/dL (8.4-10.2) 09/02/20 07:37 Total Bilirubin 0.5 mg/dL (0.2-1.3) 09/02/20 07:37 AST 24 U/L (14-36) 09/02/20 07:37 ALT 13 U/L (4-34) 09/02/20 07:37 Alkaline Phosphatase 61 U/L (38-126) 09/02/20 07:37 Total Protein 7.9 g/dL (6.3-8.2) 09/02/20 07:37 Albumin 4.3 g/dL (3.5-5.0) 09/02/20 07:37 Triglycerides 70 mg/dL (<150) 09/02/20 07:37 Cholesterol 149 mg/dL (<200) 09/02/20 07:37 LDL Cholesterol, Calc 89 mg/dL (0-99) 09/02/20 07:37 HDL Cholesterol 46 mg/dL (40-60) 09/02/20 07:37 TSH 1.070 mIU/L (0.465-4.680) 09/02/20 07:37 Coronavirus (PCR) Not Detected (Not Detectd) 09/01/20 20:57 Allergies Allergy/AdvReac Type Severity Reaction Status Date / Time No Known Allergies Allergy Verified 09/01/20 20:06 Patient Condition at Discharge: Stable Plan - Discharge Summary Discharge Rx Participant: Yes New Discharge Prescriptions: New FLUoxetine HCL [PROzac] 30 mg PO DAILY 30 Days cap Discharge Medication List FLUoxetine HCL [PROzac] 30 mg PO DAILY 30 Days cap 09/03/20 [Rx] Follow up Appointment(s)/Referral(s): [facility] [NON-STAFF] - 1 Week Patient Instructions/Handouts: Depression (DC) Activity/Diet/Wound Care/Special Instructions: Activity and diet as tolerated. Avoid the use of street drugs and alcohol. Take all medications as prescribed. When you are in need of refills on your medications please contact your medical provider and/or outpatient psychiatrist to have this done. Please go to scheduled outpatient appointment for aftercare treatment. If symptoms return or become worse, call the crisis line at and/or go to the nearest emergency room for evaluation. Discharge Disposition: HOME SELF-CARE
[2020-09-03 13:28] VITALS: TEMP 98.2
== END 2020-09-03 15:34 | disposition home or self-care (01) | DRG 885 ==
LOC: EC 19:24 → 3MHU 21:38
PROVIDERS: ADMIT Psychiatry & Neurology Psychiatry; ATTEND Psychiatry & Neurology Psychiatry
DX: F33.2 Major depressive disorder, recurrent severe without psychotic features (principal); R45.851 Suicidal ideations; F41.9 Anxiety disorder, unspecified; Z20.828 Contact with and (suspected) exposure to other viral communicable diseases; Z86.32 Personal history of gestational diabetes; Z91.5 Personal history of self-harm; Z90.89 Acquired absence of other organs
CPT/HCPCS: 80053; 80061; 82075; 83036; 84443; 85025; 87635; 99285

== ENCOUNTER 2020-10-31 16:07 | Emergency (ER) | payer OTHER ==
[2020-10-31 16:32] VITALS: TEMP 98.7
--- NOTE | 2020-10-31 17:30 | ED ---
General Adult HPI - General Chief complaint: Recheck/Abnormal Lab/Rx Stated complaint: Covid test, Chest pain Time Seen by Provider: 10/31/20 17:18 Source: patient, RN notes reviewed Mode of arrival: ambulatory Limitations: no limitations - History of Present Illness Initial comments: Patient is a 25 she'll female presents to emergency department complaining of cold-like symptoms involving chest tightness shortness of breath diarrhea muscle aches and general body aches and pains. He stated that he has had these issues for the past 4-5 days, decided come in today just to get tested to make sure everything was okay. She denied any acute pain or distress. She was comfortable sitting in bed during the examination interview. She denied any sharp chest pain lightheadedness dizziness nausea vomiting patient fever fatigue chills - Related Data Previous Rx's Medication Instructions Recorded FLUoxetine HCL [PROzac] 30 mg PO DAILY 30 Days cap 09/03/20 Allergies Allergy/AdvReac Type Severity Reaction Status Date / Time No Known Allergies Allergy Verified 10/31/20 16:32 Review of Systems ROS Statement: Those systems with pertinent positive or pertinent negative responses have been documented in the HPI. ROS Other: All systems not noted in ROS Statement are negative. Past Medical History Past Medical History: No Reported History Additional Past Medical History / Comment(s): asthma as child, gestational diabetes History of Any Multi-Drug Resistant Organisms: None Reported Past Surgical History: Adenoidectomy, Section Additional Past Surgical History / Comment(s): 2011 c/s, 2003 lasik, Past Anesthesia/Blood Transfusion Reactions: No Reported Reaction Past Psychological History: Anxiety, Depression Smoking Status: Never smoker Past Alcohol Use History: Occasional Past Drug Use History: None Reported General Exam Limitations: no limitations General appearance: alert, in no apparent distress Head exam: Present: atraumatic, normocephalic, normal inspection Eye exam: Present: normal appearance, PERRL, EOMI. Absent: scleral icterus, conjunctival injection, periorbital swelling ENT exam: Present: normal exam, mucous membranes moist Neck exam: Present: normal inspection. Absent: tenderness, meningismus, lymphadenopathy Respiratory exam: Present: normal lung sounds bilaterally. Absent: respiratory distress, wheezes, rales, rhonchi, stridor Cardiovascular Exam: Present: regular rate, normal rhythm, normal heart sounds. Absent: systolic murmur, diastolic murmur, rubs, gallop, clicks GI/Abdominal exam: Present: soft, normal bowel sounds. Absent: distended, te nderness, guarding, rebound, rigid Extremities exam: Present: normal inspection, full ROM, normal capillary refill. Absent: tenderness, pedal edema, joint swelling, calf tenderness Neurological exam: Present: alert, oriented X3, CN II-XII intact Psychiatric exam: Present: normal affect, normal mood Skin exam: Present: warm, dry, intact, normal color. Absent: rash Course Vital Signs 10/31/20 10/31/20 10/31/20 16:29 19:07 19:10 Temperature 98.7 F Pulse Rate 97 75 Respiratory 20 18 18 Rate Blood Pressure 134/76 125/81 O2 Sat by Pulse 100 99 Oximetry Medical Decision Making - Medical Decision Making 25 female complaining of cold-like symptoms. Chest x-ray, basic labs ordered. Influenza and covid test ordered. Coronavirus positive. Labs unremarkable. Case discussed with Dr. viramontes who decided the patient to discharge home consult quarantine for 10-14 days. - Lab Data Result diagrams: 10/31/20 18:41 10/31/20 18:41 Lab Results 10/31/20 10/31/20 10/31/20 Range/Units 17:43 17:43 18:41 WBC 3.2 L (3.8-10.6) k/uL RBC 4.02 (3.80-5.40) m/uL Hgb 11.8 (11.4-16.0) gm/dL Hct 35.2 (34.0-46.0) % MCV 87.6 (80.0-100.0) fL MCH 29.3 (25.0-35.0) pg MCHC 33.4 (31.0-37.0) g/dL RDW 14.3 (11.5-15.5) % Plt Count 266 (150-450) k/uL MPV 8.2 Neutrophils % 54 % Lymphocytes % 33 % Monocytes % 8 % Eosinophils % 2 % Basophils % 1 % Neutrophils # 1.7 (1.3-7.7) k/uL Lymphocytes # 1.0 (1.0-4.8) k/uL Monocytes # 0.3 (0-1.0) k/uL Eosinophils # 0.1 (0-0.7) k/uL Basophils # 0.0 (0-0.2) k/uL Sodium (137-145) mmol/L Potassium (3.5-5.1) mmol/L Chloride (98-107) mmol/L Carbon Dioxide (22-30) mmol/L Anion Gap mmol/L BUN (7-17) mg/dL Creatinine (0.52-1.04) mg/dL Est GFR (CKD-EPI)AfAm (>60 ml/min/1.73 sqM) Est GFR (CKD-EPI)NonAf (>60 ml/min/1.73 sqM) Glucose (74-99) mg/dL Calcium (8.4-10.2) mg/dL Total Bilirubin (0.2-1.3) mg/dL AST (14-36) U/L ALT (4-34) U/L Alkaline Phosphatase (38-126) U/L Total Protein (6.3-8.2) g/dL Albumin (3.5-5.0) g/dL Coronavirus (PCR) Detected A (Not Detectd) Influenza Type A RNA Not Detected (Not Detectd) Influenza Type B (PCR) Not Detected (Not Detectd) 10/31/20 Range/Units 18:41 WBC (3.8-10.6) k/uL RBC (3.80-5.40) m/uL Hgb (11.4-16.0) gm/dL Hct (34.0-46.0) % MCV (80.0-100.0) fL MCH (25.0-35.0) pg MCHC (31.0-37.0) g/dL RDW (11.5-15.5) % Plt Count (150-450) k/uL MPV Neutrophils % % Lymphocytes % % Monocytes % % Eosinophils % % Basophils % % Neutrophils # (1.3-7.7) k/uL Lymphocytes # (1.0-4.8) k/uL Monocytes # (0-1.0) k/uL Eosinophils # (0-0.7) k/uL Basophils # (0-0.2) k/uL Sodium 137 (137-145) mmol/L Potassium 4.2 (3.5-5.1) mmol/L Chloride 102 (98-107) mmol/L Carbon Dioxide 26 (22-30) mmol/L Anion Gap 9 mmol/L BUN 8 (7-17) mg/dL Creatinine 0.78 (0.52-1.04) mg/dL Est GFR (CKD-EPI)AfAm >90 (>60 ml/min/1.73 sqM) Est GFR (CKD-EPI)NonAf >90 (>60 ml/min/1.73 sqM) Glucose 106 H (74-99) mg/dL Calcium 9.3 (8.4-10.2) mg/dL Total Bilirubin 0.3 (0.2-1.3) mg/dL AST 28 (14-36) U/L ALT 16 (4-34) U/L Alkaline Phosphatase 64 (38-126) U/L Total Protein 8.3 H (6.3-8.2) g/dL Albumin 4.6 (3.5-5.0) g/dL Coronavirus (PCR) (Not Detectd) Influenza Type A RNA (Not Detectd) Influenza Type B (PCR) (Not Detectd) - Radiology Data Radiology results: report reviewed, image reviewed Chest x-ray No acute cardiopulmonary process Disposition Clinical Impression: COVID-19 Disposition: HOME SELF-CARE Condition: Stable Instructions (If sedation given, give patient instructions): Coronavirus Disease 2019 (COVID-19) Additional Instructions: Please return to the Emergency Department if symptoms worsen or any other concerns. Follow-up with primary care 1-2 days. Quarantine for 10-14 days or until asymptomatic. Drink plenty of fluids and take [id number] NSAIDs for conservative management of aches pains and fever. Is patient prescribed a controlled substance at d/c from ED?: No Referrals: None,Stated [Primary Care Provider] - 1-2 days Time of Disposition: 19:20
--- NOTE | 2020-10-31 18:24 | XR ---
EXAMINATION TYPE: XR chest 2V DATE OF EXAM: 10/31/2020 COMPARISON: 09/08/2017. HISTORY: Shortness of breath. TECHNIQUE: Frontal and lateral views of the chest are obtained. FINDINGS: There is no focal air space opacity, pleural effusion, or pneumothorax seen. The cardiac silhouette size is within normal limits. The osseous structures are intact. IMPRESSION: No acute cardiopulmonary process.
[2020-10-31 18:50] LABS: Basophils % (A) 1 %; Eosinophils # (A) 0.1 k/uL (0-0.7); Eosinophils % (A) 2 %; HCT 35.2 % (34.0-46.0); HGB 11.8 gm/dL (11.4-16.0); Lymphocytes % (A) 33 %; MCH 29.3 pg (25.0-35.0); MCHC 33.4 g/dL (31.0-37.0); MCV 87.6 fL (80.0-100.0); Mean Platelet Volume 8.2; Monocytes # (A) 0.3 k/uL (0-1.0); Monocytes % (A) 8 %; Neutrophils # (A) 1.7 k/uL (1.3-7.7); Neutrophils % (A) 54 %; Platelet Count 266 k/uL (150-450); RBC 4.02 m/uL (3.80-5.40); RDW 14.3 % (11.5-15.5); WBC 3.2 k/uL (3.8-10.6)
[2020-10-31 19:06] LABS: ALT 16 U/L (4-34); AST 28 U/L (14-36); African American GFR (CKD) >90 (>60 ml/min/1.73 sqM); Albumin 4.6 g/dL (3.5-5.0); Alkaline Phosphatase 64 U/L (38-126); Anion Gap 9 mmol/L; Blood Urea Nitrogen 8 mg/dL (7-17); Calcium 9.3 mg/dL (8.4-10.2); Carbon Dioxide 26 mmol/L (22-30); Chloride 102 mmol/L (98-107); Glucose 106 mg/dL (74-99); Non-African American GFR(CKD) >90 (>60 ml/min/1.73 sqM); Potassium 4.2 mmol/L (3.5-5.1); Sodium 137 mmol/L (137-145); Total Bilirubin 0.3 mg/dL (0.2-1.3); Total Protein 8.3 g/dL (6.3-8.2)
[2020-10-31 19:09] VITALS: BP 125/81; PULSE 75; RESP 18
== END 2020-10-31 19:50 | disposition home or self-care (01) ==
LOC: EC 16:07
DX: U07.1 COVID-19 (principal)
CPT/HCPCS: 36415; 71046; 80053; 85025; 87502; 87635; 99285

== ENCOUNTER 2021-06-13 05:16 | Emergency (ER) | payer OTHER ==
[2021-06-13 05:26] VITALS: BP 130/83; PULSE 90; RESP 22; TEMP 98.4
[2021-06-13] MEDS ORDERED: AMOXIC-POT CLAV 875MG STARTER PACK 2 TAB BTL PO STA (06:23)
[2021-06-13] MEDS ORDERED: ACET/COD 300 MG/30 MG STARTER PACK 6 TAB BTL PO STA (06:23)
[2021-06-13] MEDS ORDERED: IBUPROFEN 600 MG STARTER PACK 4 TAB BTL PO STA (06:23)
[2021-06-13] MEDS ORDERED: traMADol 50 MG STARTER PACK 3 TAB BTL PO STA (06:23)
[2021-06-13] MEDS ORDERED: Acetaminophen-Codeine 300-30mg TAB PO STA (06:24)
[2021-06-13] MEDS ORDERED: AMOXIC-POT CLAV 875-125MG 1 EACH TAB PO STA (06:24)
--- NOTE | 2021-06-13 06:24 | ED ---
ENT HPI - General Chief complaint: Dental/Oral Stated complaint: Sore Throat Time Seen by Provider: 06/13/21 05:39 Source: patient, RN notes reviewed, old records reviewed Mode of arrival: ambulatory Limitations: no limitations - History of Present Illness Initial comments: This is a 25-year-old female to the emergency room today. Patient presents to y for evaluation of dental infection history of dental caries history of dental abscess history of tooth extraction. Patient is able to eat and drink has no fevers and no other complaints. Lovenox without significant difficulty MD complaint: tooth pain -: days(s) Location: tooth # Severity: severe Severity scale (1-10): 10 Quality: stabbing Consistency: constant Improves with: none Worsens with: none Context- Dental: history of dental caries, poor dental care Associated Symptoms: sore throat - Related Data Previous Rx's Medication Instructions Recorded FLUoxetine HCL [PROzac] 30 mg PO DAILY 30 Days cap 09/03/20 Amoxic-Pot Clav 875-125Mg 1 tab PO Q12HR #20 tablet 06/13/21 [Augmentin 875-125] Allergies Allergy/AdvReac Type Severity Reaction Status Date / Time No Known Allergies Allergy Verified 06/13/21 05:26 Review of Systems ROS Statement: Those systems with pertinent positive or pertinent negative responses have been documented in the HPI. ROS Other: All systems not noted in ROS Statement are negative. Past Medical History Past Medical History: No Reported History Additional Past Medical History / Comment(s): asthma as child, gestational diabetes History of Any Multi-Drug Resistant Organisms: None Reported Past Surgical History: Adenoidectomy, Section Additional Past Surgical History / Comment(s): 2011 c/s, 2003 lasik, Past Anesthesia/Blood Transfusion Reactions: No Reported Reaction Past Psychological History: Anxiety, Depression Smoking Status: Never smoker Past Alcohol Use History: Occasional Past Drug Use History: None Reported General Exam - General Exam Comments Initial Comments: Significant dental caries with abscess Limitations: no limitations General appearance: alert, in no apparent distress Head exam: Present: atraumatic, normocephalic, normal inspection Eye exam: Present: normal appearance, PERRL, EOMI. Absent: scleral icterus, conjunctival injection, periorbital swelling ENT exam: Present: normal exam, mucous membranes moist Neck exam: Present: normal inspection. Absent: tenderness, meningismus, lymphadenopathy Respiratory exam: Present: normal lung sounds bilaterally. Absent: respiratory distress, wheezes, rales, rhonchi, stridor Cardiovascular Exam: Present: regular rate, normal rhythm, normal heart sounds. Absent: systolic murmur, diastolic murmur, rubs, gallop, clicks GI/Abdominal exam: Present: soft, normal bowel sounds. Absent: distended, tenderness, guarding, rebound, rigid Extremities exam: Present: normal inspection, full ROM, normal capillary refill. Absent: tenderness, pedal edema, joint swelling, calf tenderness Back exam: Present: normal inspection Neurological exam: Present: alert, oriented X3, CN II-XII intact Psychiatric exam: Present: normal affect, normal mood Skin exam: Present: warm, dry, intact, normal color. Absent: rash Course Vital Signs 06/13/21 05:22 Temperature 98.4 F Pulse Rate 90 Respiratory 22 Rate Blood Pressure 130/83 O2 Sat by Pulse 98 Oximetry - Reevaluation(s) Reevaluation #1: Medical record is reviewed Patient symptoms are improved here in the ER Patient informed results and questions answered Medical Decision Making - Medical Decision Making 5 female DF for evaluation patient resents today with history of dental caries and dental abscess. At this point patient's pain is well-controlled and she can be discharged home Disposition Clinical Impression: Dental abscess, Dental caries Disposition: HOME SELF-CARE Condition: Good Instructions (If sedation given, give patient instructions): Dental Abscess (ED), Toothache (ED) Prescriptions: Amoxic-Pot Clav 875-125Mg [Augmentin 875-125] 1 tab PO Q12HR #20 tablet Is patient prescribed a controlled substance at d/c from ED?: No Referrals: None,Stated [Primary Care Provider] - 1-2 days
== END 2021-06-13 07:15 | disposition home or self-care (01) ==
LOC: EC 05:16
DX: K04.7 Periapical abscess without sinus (principal); K02.9 Dental caries, unspecified
CPT/HCPCS: 99282